=== PATIENT | female | born 1990 | race Caucasian/White ===

== ENCOUNTER 2020-12-10 19:06 | Outpatient (REF) | payer MEDICAID, SELFPAY ==
[2020-12-10 20:58] LABS: HCT 43.1 % (36.0-46.0); HGB 13.9 g/dL (11.2-15.7)
[2020-12-10 21:27] LABS: TSH (W/Ref FT4) 1.11 uIU/mL (0.36-3.74)
[2020-12-13 05:09] LABS: Vitamin D 25 Total 22.8 ng/ml (30-100)
[2020-12-13 15:12] LABS: Chlamydia Result Negative (Negative); GC Result Negative (Negative)
== END 2020-12-10 19:26 ==
LOC: NCHCN 19:06
PROVIDERS: PCP Family Medicine; Visit Provider Nurse Practitioner Family
DX: R10.2 Pelvic and perineal pain (principal); F41.8 Other specified anxiety disorders
CPT/HCPCS: 82306; 87491; 87591; 84443; 85014; 85018

== ENCOUNTER 2023-02-19 14:40 | Outpatient (CLI) | payer MEDICAID, SELFPAY ==
--- NOTE | 2023-02-19 | DI.US_ITS ---
Exam(s) US OB TRANSVAGINAL EXAM: US OB TRANSVAGINAL CLINICAL HISTORY: OF UNKNOWN ANATOMIC LOCATION,[id number],NO SAC 02/16. COMPARISON: No exams were available for comparison TECHNIQUE: Transabdominal Transvaginal first trimester obstetrical ultrasound performed. FINDINGS: Uterus: 8.2 long by 3.5 AP by 4.9 transverse cm. Right ovary: 1.3 x 1.4 x 2.6 cm. No suspicious cystic or solid masses are seen. Left ovary: 2.7 x 2.1 x 2.8 cm. There is a 2.2 x 1.5 x 2.2 cm hypoechoic cyst which likely reflects a corpus luteal cyst. No suspicious adnexal masses or free pelvic fluid is seen. There is a 8.1 mm cyst within the endometrium which may represent a gestational sac. No yolk sac is seen. There is a small nodule soft tissue on the wall which may represent an early gestation. No fe ezio heart rate was obtained at this time. There are few other tiny less than 2 mm cyst seen within o r adjacent to the endometrium. IMPRESSION: 1. 8 mm cyst within the endometrium. No definite pole is seen at this time. A follow-up pelvi c ultrasound in 1-2 weeks is recommended to confirm viability. 2. No adnexal masses or free pelvic fluid is seen. DATA REPOSITORY:
== END 2023-02-19 15:00 ==
LOC: DI 14:41
PROVIDERS: PCP Family Medicine; Visit Provider Advanced Practice Midwife
DX: O36.80X0 Pregnancy with inconclusive fetal viability, not applicable or unspecified (principal)
CPT/HCPCS: 76817

== ENCOUNTER 2023-10-29 23:27 | Emergency (ER) | payer MEDICAID, SELFPAY ==
[2023-10-29 23:28] VITALS: BP 148/99; PULSE 98; RESP 14; O2SAT 98
--- NOTE | 2023-10-29 23:30 | RT.EKG_ITS ---
APPROVED REPORT Exam: Resting ECG Reason for Exam: overdose Patient Location: E HR:85 bpm ECG Measurements Heart Rate 85 AXIS KS 141 P 77 QRSd 105 QRS 80 QT 366 T 29 QTc 433 Conclusion Sinus rhythm...normal P axis, V-rate 60- 99 Paired ventricular premature complexes...sequence of 2 V complexes Physician: normal sinus rhythm, slight artifact and PVCs noted, intervals normal. No ST elevations. No signs of STEMI.
[2023-10-29 23:31] VITALS: BP 148/99; PULSE 94; O2SAT 100
[2023-10-29 23:32] VITALS: O2SAT 100
--- NOTE | 2023-10-29 23:37 | W.ED.GENAD ---
Discharge Plan Discharge Details Chief Complaint: Suicide-Atempt Clinical Impression: Carbon monoxide poisoning, Depression Primary Care Provider: Marco Edmondson ED Provider: Ken Quintana Home Meds and New Rx's Prescriptions: No Action fluoxetine [Prozac] 40 mg capsule 40 mg PO DAILY sumatriptan succinate [Imitrex] 25 MG tablet 25 mg PO BID PRN PRN (Reason: Headache) Qty: 6 0RF Medical Decision Making 32-year-old female with past medical history of depression presents today for car monoxide overdose. Patient states that she is felt somewhat depressed as of late, and then this evening after posting concerning messages online she went into her car and close all the doors and sat in the garage with the car running for 1 to 2 hours. Father came to the house, broken, broke the window and rescue trauma. EMS was called, and she was brought to the ER for further assessment. Patient does admit to drinking 1 beer tonight. She does take Prozac regularly but states that she only took a single pill this morning as directed. This is a 40 mg dose. She denies any other drug use. Denies any other medication use. She denies necessarily wanting to kill herself, she states that she just want to go to sleep and not wake up. She denies any homicidal ideations. No other complaints at this time. She does give permission to discuss her care with her mother and father. Physical exam demonstrates well-appearing female, she is soft-spoken and quite quiet currently. No wong red lips. No neurologic deficits. Initial carbon monoxide level is 7 on bedside carbon monoxide monitor. We will start supplemental oxygen at 10 L on nonrebreather. No indication for intubation. Will get a carboxyhemoglobin level, ABG, test for potential other toxic ingestions, monitor closely and reassess. EKG demonstrates normal sinus rhythm, slight artifact and PVCs noted, intervals normal. No ST elevations. No signs of STEMI. 12:57 AM Laboratory workup has returned, no white count bandemia or left shift. Electrolytes are stable. ABG demonstrates no evidence of acidosis or alkalosis. ABG PaO2 is 193. Carboxyhemoglobin level is 2.1. On reassessment after an hour and a half on high flow oxygen her pulse carbon monoxide level is now reading undetectable. Patient looks well. She does have mild headache but no other neurologic deficits or complaints. Patient's urine drug screen is positive for amphetamines, but no other abnormality. Salicylates and acetaminophen negative. We will give Tylenol here for treatment of headache. We will contact her mental health advocates to further discuss the situation with the patient. Patient is otherwise medically clear at this stage. 1:53 AM Patient has been seen and assessed by mental health. They feel that the patient would benefit from a short overnight stay here, followed by transition to a crisis bed in the morning. Mental health would like to reassess the patient again in the morning. Patient will be transition to zone B, she remains stable at this time. Patient is medically cleared. Patient will be signed out to my colleague. HPI General Date/Time Provider Initiated Documentation: 10/29/23 23:35. HPI Narrative: 32-year-old female with past medical history of depression presents today for car monoxide overdose. Patient states that she is felt somewhat depressed as of late, and then this evening after posting concerning messages online she went into her car and close all the doors and sat in the garage with the car running for 1 to 2 hours. Father came to the house, broken, broke the window and rescue trauma. EMS was called, and she was brought to the ER for further assessment. Patient does admit to drinking 1 beer tonight. She does take Prozac regularly but states that she only took a single pill this morning as directed. This is a 40 mg dose. She denies any other drug use. Denies any other medication use. She denies necessarily wanting to kill herself, she states that she just want to go to sleep and not wake up. She denies any homicidal ideations. No other complaints at this time. She does give permission to discuss her care with her mother and father. Related Data Home Medications Medication Instructions Recorded Confirmed sumatriptan succinate 25 mg tablet 25 mg PO BID PRN PRN Headache #6 04/15/14 10/29/23 (Imitrex) tabs fluoxetine 40 mg capsule (Prozac) 40 mg PO DAILY 12/04/22 10/29/23 Previous Rx's Medication Instructions Recorded sumatriptan succinate 25 mg tablet 25 mg PO BID PRN PRN Headache #6 04/15/14 (Imitrex) tabs Allergies Allergy/AdvReac Type Severity Reaction Status Date / Time No Known Allergies Allergy Unverified 10/29/23 23:33 General Stated Complaint: PsychEval DAVID: 3 Review of Systems All systems reviewed & are unremarkable except as noted in HPI and below PFSH All Active Problems (Updated 10/30/23 @ 01:54 by Ken Quintana DO) Depression (Chronic) Carbon monoxide poisoning (Acute) Social History Smoking/Tobacco Use Status: Never Smoking risk assessment performed?: Yes Drug use: Never Exam Narrative Exam Narrative: 1.Const: Well-nourished, Well-developed, appearing stated age 2.Eyes: PERRL, no conjunctival injection, and symmetrical lids. 3.ENT: Atraumatic external nose and ears. Moist MM. Neck: Symmetric, trachea midline, No thyromegaly. 4.CVS: +S1/S2, No murmurs or gallops. Peripheral pulses 2+ and equal in all extremities. Brisk capillary refill in all extremities. 5.RESP: Unlabored respiratory effort. Clear to auscultation bilaterally. No wheezes rales or rhonchi 6.GI: Soft, Nontender/Nondistended, No hepatosplenomegaly. No guarding or rebound. 7.MSK: Normocephalic/Atraumatic, Extremities w/o deformity or ttp No cyanosis or clubbing, Normal movement of all extremities 8.Skin: Warm, Dry. No rashes or lesions. 9.Neuro: neurology technologist II-XII grossly intact. Sensation grossly intact, no focal neurologic deficits. All 6 cardinal planes of vision are fully intact. No evidence of rotatory or vertical nystagmus. The patient demonstrated a normal rrrpkf-duiv-lkkltl, good dexterity. There was no evidence of dysdiadochokinesia. Patient was able to ambulate without difficulty. There was no wide-based gait. Romberg testing was normal. Bzea-iz-xtoe testing was normal. Sensation was intact bilaterally as well as muscle strength bilaterally for all extremities. Patient was able to verbalize butter cup with no slurring, or miss pronunciation. 10.Psych: (AAO) x3. Appropriate mood and affect Course Vital Signs Vital signs: Vital Signs Pulse 98 H 10/29/23 23:28 Respiratory Rate 14 10/29/23 23:28 Blood Pressure 148/99 H 1218/23 23:28 Pulse Oximetry 98 10/29/23 23:28 Pulse 98 H 10/29/23 23:28 Respiratory Rate 14 10/29/23 23:28 Respiratory Effort Normal 10/29/23 23:32 Blood Pressure 148/99 H 10/29/23 23:28 Blood Pressure Position Sitting 10/29/23 23:28 Pulse Oximetry 98 10/29/23 23:28 Oxygen Delivery Method Room Air 10/29/23 23:28 Oxygen Flow Rate 0 10/29/23 23:28
[2023-10-29 23:40] VITALS: O2SAT 100
[2023-10-29 23:50] VITALS: PULSE 97; RESP 24; O2SAT 100
[2023-10-29 23:50] LABS: Abs Immature Grans 0.02 10^3/uL (0.0-0.06); Absolute Basophil Count 0.06 10^3/uL (0.0-0.2); Absolute Eosinophil Count 0.15 10^3/uL (0.0-0.7); Absolute Lymphocyte Count 1.59 10^3/uL (1.2-3.4); Absolute Monocyte Count 0.31 10^3/uL (0.1-0.8); Eosinophils % 2.5; HCT 40.2 % (36.0-46.0); HGB 13.9 g/dL (11.2-15.7); Immature Grans % 0.3; Lymphocytes % 26.4; MCH 32.1 pg (27.0-33.0); MCHC 34.6 % (32.0-36.0); MCV 93 fL (80-95); MPV 8.3 fL (8.0-11.0); Monocytes % 5.1; Neutrophils % 64.7; Platelet Count 312 10^3/uL (130-400); RBC 4.33 10^6/uL (3.93-5.22); RDW 11.6 % (11.7-14.6); RDW-SD 39.4 fL; WBC 6.03 10^3/uL (4.4-10.8)
[2023-10-29 23:51] LABS: Carboxyhemoglobin 2.1 %
[2023-10-30] VITALS (22 sets, daily range): BP systolic 118–138; BP diastolic 77–97; PULSE 70–89; RESP 13–23; TEMP 36.9; O2SAT 99–100
[2023-10-30 00:06] LABS: BE 0 mmol/L (-2-3); HCO3 24 mmol/L (22-26); pCO2 35 mmHg (35-45); pH 7.45 (7.35-7.45); pO2 193 mmHg (80-105); sO2 99 % (95-98); tCO2 21 mmol/L (23-27)
[2023-10-30 00:08] LABS: ALT 21 U/L (14-59); AST 15 U/L (15-37); Albumin 3.7 g/dL (3.4-5.0); Alkaline Phosphatase 64 U/L (46-116); Anion Gap 11.1 mmol/L (3-11); BUN 12 mg/dL (7-18); Bilirubin, Total 0.2 mg/dL (0.2-1.0); CO2 25.9 mmol/L (21.0-32.0); CREATININE 0.7 mg/dL (0.55-1.02); Chloride 103 mmol/L (98-107); Estimated GFR 119.24 (mL/min/1.73m2); Glucose 101 mg/dL (74-106); Potassium 3.6 mmol/L (3.5-5.1); Sodium 140 mmol/L (136-145); Total Protein 7.6 g/dL (6.4-8.2)
[2023-10-30 00:09] LABS: FIO2L 10 L; Site Right Radial
[2023-10-30 00:10] LABS: ETHANOL BLOOD < 3.0 mg/dL (<10)
[2023-10-30] MEDS: Lactated Ringers 1,000 ML 1000 ML IV (00:11)
[2023-10-30 00:19] LABS: Salicylate < 2.8 mg/dL (<2.8)
[2023-10-30 00:21] LABS: Acetaminophen < 2 ug/mL (10-30)
[2023-10-30 00:39] LABS: *AMPHETAMINES SCREEN URINE Positive (Negative); *BARBITURATES SCREEN URINE Negative (Negative); *BENZODIAZEPINES SCREEN URINE Negative (Negative); Cannabinoids THC Negative (Negative); Cocaine Screen,Urine Negative (Negative); METHADONE URINE SCREEN Negative (Negative); OPIATES URINE SCREEN Negative (Negative)
[2023-10-30 00:40] LABS: Tricyclic Antidepressants Negative (Negative)
[2023-10-30 00:49] LABS: Bilirubin Negative (Negative); Blood Trace-intact (Negative); Clarity Clear (Clear); Glucose Negative (Negative); Ketones Negative (Negative); Leukocyte Esterase Negative (Negative); Nitrite Negative (Negative); Urobilinogen 0.2 mg/dL (Up to 0.2)
[2023-10-30 01:01] LABS: Bacteria Few HPF (Negative); C & S Indicated? No; Crystals Negative HPF (Negative); Epithelial Cells Many HPF (Negative); Mucus Trace (Negative); RBC 0-2 HPF (0-2); WBC Negative HPF (0-5)
[2023-10-30] MEDS: Acetaminophen 500 MG TAB 1000 MG PO (01:02)
--- NOTE | 2023-10-30 01:46 | PDOC.MHCN_ITS ---
Date of service: 10/30/23 Time of Service: 01:45 PHQ-9 Over the last 2 weeks, how often have you been bothered by any of the following problems? 1. Little interest or pleasure in doing things: more than half the days 2. Feeling down, depressed, or hopeless: more than half the days 3. Trouble falling or staying asleep, or sleeping too much: several days 4. Feeling tired or having little energy: several days 5. Poor appetite or overeating: several days 6. Feeling bad about yourself - or that you are a failure or have let yourself and your family down: more than half the days 7. Trouble concentrating on things, such as reading the newspaper or watching television: not at all 8. Moving or speaking so slowly that other people could have noticed? - Or the opposite - being so fidgety or restless that you have been moving around a lot more than usual: several days 9. Thoughts that you would be better off or of hurting yourself in some way: several days Total score: 11 If you checked off any problems, how difficult have these problems made it for you to do your work, take care of things at home, or get along with other people?: somewhat difficult Source: Developed by Drs. Jamshid Toth, Jenelle Thompson, Antonio Yip and colleagues, with an educational jorge from [employer]. Suicide Severity Rate CSSRS Have you wished you were or wished you could go to sleep and not wake up?: No Have you actually had any thoughts of killing yourself?: Yes CSSRS2 Have you been thinking about how you might do this?: Yes Have you had these thoughts and had some intention of acting on them?: Yes Have you started to work out or worked out the details of how to kill yourself? Do you intend to carry out this plan?: Yes CSSRS3 Have you ever done anything, started to do anything or prepared to do anything to end your life?: Yes CSSRS4 Was this within the past three months?: Yes Screening Score Total Score: 6 Screening: Positive Mental Health Emergency Note Release [facility] release signed:: Yes Reason for Visit Kirit was brought to [facility] via ambulance after [facility] connected with [facility] regarding Kirit's active SI. In the last 2 weeks has the pt presented for ES prior to today?: Unknown Client Information Client is: New Well Housed: Yes Non Suicidal Self Injury Current: No History: No Safety Risk/Harm to Self or Others Current Ideation to Harm Self or Others: Yes to self. (Kirit is not currently endorsing but earlier tonight, Kirit sat in her garage with the car on and the door closed but her father found her. ) Intent: yes, has intent. Plan: yes,has a plan. History of suicide attempt: yes,history of suicide attempt reported. Details of previous suicide attempt: Today's situation. Risk: Does risk to harm exist?: No Risk: Low Risk Duty to warn indicated: No Asssessment/Mental Status Appearance: Unremarkable Attitude: Cooperative Behavior: Poor impulse control Speech: Soft Affect: Cogruent with mood Mood: Sad, Depressed and Anxious Thought process: Unremarkable Hallucinations: No evidence Delusions: No evidence Attention: Unremarkable Perception: Not impaired Orientation: Fully orientated Memory: Intact Insight: Good Judgement: Good Neurovegetative Symptoms Sleep: No change Appetitie: No change Interests: No change Energy: No change Libido: Not applicable Substance Use: Do you use nicotine?: No Have you used substances in the last 7 days?: No Additional Issues: Assaultive/Threatening Behavior: No Medical Concerns: No Client engaged in active self harm w/weapon: No Threatening to run away: No Child reported abuse/neglect: No Voluntarily presenting for services: Yes Domestic violence is a concern: No Extreme Psychosis or extreme behavior is present: No Impression Kirit presented to [facility] via ambulance after her family called [facility] in concern for her safety. Upon her father's arrival to her home he found her in the garage with the door closed and her car running. Kirit reports she felt extremely overwhelmed with everything happening in her life. Kirit is currently going through a separation from her children's father, she is stressed about finances, [place], attempting to take care of herself while being a mom and working. 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 Kirit reports she has been trying to get help for awhile now because things had been declining but she felt getting help was very hard. Kirit reports emailing several therpaists on psychology today as she feels her current therapist is not the best fit; although she wants to continue to see this therapist until a new therapist is concerned so she does not skip having therapy. Kirit also sees a community med provider. Kirit reports her medication was switched in July which caused her to get sick and go off meds for about two months. Kirit reports Thanksmarielleving charan time was very hard for her and she began taking Prozac again to help. Kirit reports she was really sad around the time of Thanksgiving because she felt nothing was going right. Kirit compared this moment to her feelings around Thanksgiving. Kirit is supposed to have a med appointment . Kirit reports she knows and has known she needs more help. Kirit reports she is tired of feeling this way and wants help to not feel this way anymore. Kirit scored a 11/27 on the phq9, a 5/6 on the CSSRS due to today's incident but Kirit reported she felt triggered and acted on impulse so without today it would have been a 3/6. Kirit reports that she got home from work and lost power shortly after which overwhlemed her as she has so many things to do. After losing power Kirit went to see if a friend was home and they were not so she went to the [employer]. Kirit reports having one alcoholic beverage, and on her way home a sad song came on which is when her mind started to race. This was also day 1 of the weke Kirit's two children are with their father. Kirit reports she wrote an I love you note to her children today apologizing to them. Kirit reports she lives alone when her kids are not there but she has a friend near by and her parents live about thirty minutes away. Kirit named several friends and family as support in addition to her therapist and med provider. Kirit reports her 'need' is a plan, she wants help, wants to know how to manage her thoughts, and wants to feel better. This blurb writer discussed Kirit's options of crisis bed, inpatient, and outpatient. Kirit and this blurb writer agreed Kirit would be a good fit for the [facility]. Kirit wants to seek treatment there after the holidays and is more than willing to buy into a safety plan until then. Resources Reosurces reviewed and given:: 988, Crisis Bed, Community therapist and [facility] Plan/Disposition Recommended Disposition: Other (Plan will be thoughtfully developed tomorrow to ensure client has by in.). Plan: Kirit will remain at [facility] overnight and be seen in the morning by [facility]. [facility] and Kirit will develop a plan that will get her to seek services and have buy in, into her treatment. Kirit reports she knows she needs the help and she wants the help. Person reported agreement to plan: Yes Reports/communication Outcome discussed with: ED/Personnel
--- NOTE | 2023-10-30 07:20 | W.EDPROG ---
Date of service: 10/30/23 Time of Service: 07:20 Medical Decision Making This patient was signed out to me. Please see previous notes for H&P and initial eval. In brief, 32yo F presenting after suicide attempt via carbon monoxide. Found by her father in the garage with the car running after he saw concerning social media posts. Initial CO 7 on bedside monitor; started on NRB. Lab draw with CO of 2.1. After 90 minutes on NRB, pulse CO was undetectable and O2 was dced. Assessed by mental health, plan for reassessment in the morning and likely crisis bed placement. Medically cleared. Reassessed by [facility] and safety plan made, thought to be appropriate for discharge. Plan for crisis bed after the holidays as patient wants to spend Sean with her children. I discussed with Ms. Sierra the plan and she feels safe to go home, denies any plan or intent to harm herself at this time, regrets her actions yesterday. Her children will be with their father on [place] and Sean , then will come to her house and they will do [place] Radha on the and then celebrate sean on the . She is not sure what she will do on the ; may spend the day/night with her boyfriend or possibly with her mother. She does plan to be around people on this date and I stressed the importance of this with her as it may be an emotionally difficult time. She would like to go home and I have no indication to hold her against her will. Discharged; discharge instructions and return precautions were reviewed with patient who verbalized understanding. She states she will return to the ED if her thoughts of self harm return. All questions were answered and she is in full agreement with the plan. Sign Out Sign Out Data: Sign Out Comment: Depressed, attempted self-harm via staying in her car and achieving carbon monoxide overdose. CO level slightly elevated upon arrival. After 2 hours of high flow oxygen CO level diminished to undetectable. Patient otherwise medically cleared. Pending reassessment by mental health in the morning with potential for safety planning and crisis bed discharge Last updated by Ken Quintana DO at 10/30/23 06:33 Discharge Plan Disposition Patient Disposition: Home Condition: Good Discharge Details Clinical Impression: Carbon monoxide poisoning, Depression Primary Care Provider: Gina Crawford ED Provider: Nicci Garcia Home Meds and New Rx's Prescriptions: No Action fluoxetine [Prozac] 40 mg capsule 40 mg PO DAILY sumatriptan succinate [Imitrex] 25 MG tablet 25 mg PO BID PRN PRN (Reason: Headache) Qty: 6 0RF Discharge Instructions Instructions: Suicide Prevention (ED) Additional Instructions: Follow your safety plan. Make your check in phone calls. Call your primary care doctor today to schedule an appointment to follow up on your visit here. Return to the emergency department for new or worsening symptoms, including worsening thoughts of self harm, feeling unsafe at home, or if you have any other concerns.
--- OUTSIDE RECORDS SUMMARY | 2023-10-30 07:58 | XMS_ITS | Continuity of Care Document ---
Author Name Unknown Organization [facility] Address [address] [place] [address] Encounter [facility] FIN NBR [id number] Date(s): 06/19/23 - 06/19/23 [facility] [address] [place] [address]- Discharge Disposition: Home Allergies, Adverse Reactions, Alerts No Known Allergies Assessment and Plan Future Scheduled Tests Laboratory* Beta hCG Quantitative 02/16/23 Immunizations Given and Recorded Vaccine Date Status Refusal Reason tetanus/diphth/pertuss (Tdap) adult/adol 1 07/21/16 Recorded 1Result Comment: Unit: Unknown Medications FLUoxetine 40 mg oral capsule 40 mg = 1 cap, Oral, Daily, # 90 cap, 4 Refill(s), Pharmacy: [id number], 157, cm, 01/19/23 8:47:00 EST, Height/Length Dosing, 54, kg, 01/19/23 8:47:00 EST, Weight Dosing Start Date: 02/12/23 Stop Date: 05/07/24 Status: Ordered NuvaRing 0.120 mg-0.015 mg/24 hours vaginal ring See Instructions, INSERT 1 RING VAGINALLY DIRECTED. LEAVE IN FOR 24 DAYS THEN INSERT NEW RING 4 DAYS LATER, # 3 ring, 4 Refill(s), Pharmacy: [id number], 157, cm, 01/19/23 8:47:00 EST, Height/Length Dosing, 54, kg, 01/19/23 8:47:00 EST, Weight Dosing Start Date: 06/20/23 Status: Ordered Problem List Condition Confirmation Course Effective Dates Status Health St [facility] Informant Anxiety Confirmed Active Depression Confirmed Active Procedures Procedure Date Related Diagnosis Body Site Status Surgical termination of 02/20/23 Completed Extraction of wisdom tooth Completed Social History Social History Type Response Tobacco Never tobacco user T obacco Use:. Sex Patient Care team information Care Team Related Persons Name: KIMAUBREY Address: Home
--- OUTSIDE RECORDS SUMMARY | 2023-10-30 07:58 | XMS_ITS | Continuity of Care Document ---
Author Name Unknown Organization [facility] Address [address] [place] [address] Encounter [facility] FIN NBR [id number] Date(s): 07/17/23 - 07/17/23 [facility] [address] [place] [address]- Discharge Disposition: Home Allergies, Adverse Reactions, Alerts No Known Allergies Assessment and Plan Future Scheduled Tests Laboratory* Beta hCG Quantitative 02/16/23 Immunizations Given and Recorded Vaccine Date Status Refusal Reason tetanus/diphth/pertuss (Tdap) adult/adol 1 07/21/16 Recorded 1Result Comment: Unit: Unknown Medications FLUoxetine 40 mg oral capsule 40 mg = 1 cap, Oral, Daily, # 90 cap, 4 Refill(s), Pharmacy: [id number], 157, cm, 01/19/23 8:47:00 EST, Height/Length Dosing, 54, kg, 01/19/23 8:47:00 EST, Weight Dosing Start Date: 02/12/23 Stop Date: 05/07/24 Status: Ordered Macrobid 100 mg oral capsule 1 cap, Oral, BID, X 7 days, # 14 cap, 0 Refill(s), 07/23/23 1:25:00 PM CDT, Pharmacy: [id number], 157, 01/19/23 8:47:00 EST, 54, kg, 01/19/23 8:47:00 EST Start Date: 07/16/23 Stop Date: 07/23/23 Status: Ordered NuvaRing 0.120 mg-0.015 mg/24 hours vaginal ring See Instructions, INSERT 1 RING VAGINALLY DIRECTED. LEAVE IN FOR 24 DAYS THEN INSERT NEW RING 4 DAYS LATER, # 3 ring, 4 Refill(s), Pharmacy: [id number], 157, cm, 01/19/23 8:47:00 EST, Height/Length [...] team information Care Team Related Persons Name: AUBREY ALVAREZ Address: Home
--- OUTSIDE RECORDS SUMMARY | 2023-10-30 07:58 | XMS_ITS | Continuity of Care Document ---
Author Name Unknown Organization [facility] Ambulatory Clinics Address [address] [place] [address] Encounter [facility] NBR [id number] Date(s): 07/23/23 - 07/23/23 [facility] Ambulatory Clinics [address] [place], [place] [address] Encounter Diagnosis Routine screening for STI (sexually transmitted infection)(Discharge Diagnosis) - 07/23/23 Irregular menses(Discharge Diagnosis) - 07/23/23 Dysuria(Discharge Diagnosis) - 07/23/23 Discharge Disposition: Home or Self Care Attending Physician: Sally Kelly Allergies, Adverse Reactions, Alerts No Known Allergies Assessment and Plan Future Scheduled Tests Laboratory* Beta hCG Quantitative 02/16/23 Immunizations Given and Recorded Vaccine Date Status Refusal Reason tetanus/diphth/pertuss (Tdap) adult/adol 1 07/21/16 Recorded 1Result Comment: Unit: Unknown Medications FLUoxetine 40 mg oral capsule 40 mg = 1 cap, Oral, Daily, # 90 cap, 4 Refill(s), Pharmacy: [facility] ([facility], 157, cm, 01/19/23 8:47:00 EST, Height/Length Dosing, 54, kg, 01/19/23 8:47:00 EST, Weight Dosing Start Date: 02/12/23 Stop Date: 05/07/24 Status: Ordered NuvaRing 0.120 mg-0.015 mg/24 hours vaginal ring See Instructions, INSERT 1 RING VAGINALLY DIRECTED. LEAVE IN FOR 24 DAYS THEN INSERT NEW RING 4 DAYS LATER, # 3 ring, 4 Refill(s), Pharmacy: [facility] ([facility], 157, cm, 01/19/23 8:47:00 EST, Height/Length Dosing, 54, kg, 01/19/23 8:47:00 EST, Weight Dosing Start Date: 06/20/23 Status: Ordered Viibryd 20 mg oral tablet 20 mg = 1 tab, Oral, Daily, 0 Refill(s) Start Date: 07/23/23 Status: Ordered Problem List Condition Confirmation Course Effective Dates Status Health St atus Informant Anxiety Confirmed Active Depression Confirmed Active Procedures Procedure Date Related Diagnosis Body Site Status Surgical termination of 02/20/23 Completed Extraction of wisdom tooth Completed Vital Signs Most recent to oldest [Reference Range]: 1 Blood Pressure [90-140/60-90 mmHg] 108/7 2mmHg (07/23/23 11:07 AM) Weight 52.9 kg (07/23/23 11:07 AM) Weight Measured (lbs) 116.624 lb (07/23/23 11:07 AM) [place] Body Weight Calculated 47.8 kg (07/23/23 11:07 AM) Height 154.94 cm (07/23/23 11:07 AM) Height/Length Measured (inches) 61 inch (07/23/23 11:07 AM) BSA Measured 1.51 m2 (07/23/23 11:07 AM) Body Mass Index 22.04 kg/m2 (07/23/23 11:07 AM) Social History Social History Type Response Tobacco Never tobacco user T obacco Use:. Sex Patient Care team information Care Team Related Persons Name: AUBREY ALVAREZ Address: Home
--- OUTSIDE RECORDS SUMMARY | 2023-10-30 07:58 | XMS_ITS | Continuity of Care Document ---
Author Name Unknown Organization [facility] Address [address] [place] [id number] Encounter [facility] NBR [id number] Date(s): 01/19/23 - 01/19/[address] [address]- [place] Encounter Diagnosis Hypodermic needlestick injury of finger(Discharge Diagnosis) - 01/19/23 Contact with hypodermic needle, initial encounter(Discharge Diagnosis) - 01/19/23 Discharge Disposition: Home or Self Care Attending Physician: David Overton DO Admitting Physician: David Overton DO Allergies, Adverse Reactions, Alerts No Known Allergies Assessment and Plan Diagnostic Tests Pending * HIV Ag/Ab Combo 1/2 01/19/23 * Hepatitis B Surface Antigen 01/19/23 * Hepatitis A Antibody IgM 01/19/23 * Hepatitis B Core Antibody IgM 01/19/23 * Hepatitis C Antibody 01/19/23 Functional Status 01/19/23 Other exposure to Infectious Disease Non e Medications FLUoxetine 40 mg oral capsule 40 mg = 1 cap, Oral, Daily, # 30 cap, 0 Refill(s) Start Date: 01/19/23 Status: Ordered NuvaRing 0.120 mg-0.015 mg/24 hours vaginal ring 1 EA, VAG, every 4 wk, # 1 EA, 0 Refill(s) Start Date: 01/19/23 Status: Ordered Results Laboratory List Name Date Comprehensive Metabolic Panel (CMP) 01/19 Most recent to oldest [Reference Range]: 1 BUN [8-26 mg/dL] 13 mg/dL (01/19/23 9:58 AM) Glucose Level [74-106 mg/dL] 87 mg/dL (01/19/23 9:58 AM) Potassium Level [3.5-5.1 mmol/L] 3.7 mmo l/L (01/19/23 9:58 AM) AST [15-41 IntlUnit/L] 22 IntlUnit/L (01/19/23 9:58 AM) ALT [14-54 IntlUnit/L] 25 IntlUnit/L (01/19/23 9:58 AM) Osmolality [275-295 mOsm/kg] 271 mOsm/kg *LOW* (01/19/23 9:58 AM) Sodium Level [134-143 mmol/L] 136 mmol/L (01/19/23 9:58 AM) Calcium Level [8.9-10.3 mg/dL] 9.1 mg/dL (01/19/23 9:58 AM) Albumin Level [3.5-5.0 g/dL] 4.3 g/dL (01/19/23 9:58 AM) Protein Total [6.5-8.1 g/dL] 7.4 g/dL (01/19/23 9:58 AM) Bilirubin Total [0.2-1.2 mg/dL] 0.7 mg/d L (01/19/23 9:58 AM) Alk Phos [38-130 IntlUnit/L] 63 IntlUnit /L (01/19/23 9:58 AM) CO2 [22-32 mmol/L] 26 mmol/L (01/19/23 9:58 AM) Chloride Level [98-111 mmol/L] 101 mmol/ L (01/19/23 9:58 AM) A/G Ratio 1.4 *NA* (01/19/23 9:58 AM) BUN/Creat Ratio [8.0-20.0] 20.3 *HI* (01/19/23 9:58 AM) Globulin 3.1 *NA* (01/19/23 9:58 AM) Creatinine Level [0.44-1.00 mg/dL] 0.64 mg/dL (01/19/23 9:58 AM) Anion Gap [3.0-12.0] 9.0 (01/19/23 9:58 AM) eGFR CKD-EPI [>=60 mL/min/1.73 m2] 122 m L/min/1.73 m2 (01/19/23 9:58 AM) Vital Signs Most recent to oldest [Reference Range]: 1 Temperature Temporal Artery [36-38 Deg C ] 35.7 Deg C *LOW* (01/19/23 8:39 AM) Peripheral Pulse Rate [60-100 bpm] 74 bp m (01/19/23 8:39 AM) Respiratory Rate [12-24 br/min] 20 br/mi n (01/19/23 8:39 AM) Blood Pressure [90-140/60-90 mmHg] 126/7 6mmHg (01/19/23 8:39 AM) Weight 54.00 kg (01/19/23 8:39 AM) Weight Dosing 54.00 kg (01/19/23 8:47 AM) Height 157.000 cm (01/19/23 8:39 AM) Height/Length Dosing 157.000 cm (01/19/23 8:47 AM) Body Mass Index 22.000 kg/m2 (01/19/23 8:39 AM) Social History Social History Type Response Tobacco Never tobacco user T obacco Use:. Sex Hospital Discharge Instructions Patient Education 01/19/2023 08:36:25 Wound Care, Adult Wound Care, Adult Taking care of your wound properly can help to prevent pain, infection, and scarring. It can also help your wound heal more quickly. Follow instructions from your health care provider about how to care for your wound. Supplies needed: ??? Soap and water. ??? Wound cleanser. ??? Gauze. ??? If needed, a clean bandage (dressing) or other type of wound dressing material to cover or place in the wound. Follow your health care provider's instructions about what dressing supplies to use. ??? Cream or ointment to apply to the wound, if told by your health care provider. How to care for your wound Cleaning the wound Ask your health care provider how to clean the wound. This may include: ??? Using mild soap and water or a wound cleanser. ??? Using a clean gauze to pat the wound dry after cleaning it. Do not rub or scrub the wound. Dressing care ??? Wash your hands with soap and water for at least 20 seconds before and after you change the dressing. If soap and water are not available, use hand car painter. ??? Change your dressing as told by your health care provider. This may include: ??? Cleaning or rinsing out (irrigating) the wound. ??? Placing a dressing over the wound or in the wound (packing). ??? Covering the wound with an outer dressing. ??? Leave any stitches (sutures), skin glue, or adhesive strips in place. These skin closures may need to stay in place for 2 weeks or longer. If adhesive strip edges start to loosen and curl up, youmay trim the loose edges. Do not remove adhesive strips completely unless your health care providertells you to do that. ??? Ask your health care provider when you can leave the wound uncovered. Checking for infection Check your wound area every day for signs of infection. Check for: ??? More redness, swelling, or pain. ??? Fluid or blood. ??? Warmth. ??? Pus or a bad smell. Follow these instructions at home Medicines ??? If you were prescribed an antibiotic medicine, cream, or ointment, take or apply it as told by your health care provider. Do not stop using the antibiotic even if your condition improves. ??? If you were prescribed pain medicine, take it 30 minutes before you do any wound care or as told by your health care provider. ??? Take aojg-eae-ezyayvw and prescription medicines only as told by your health care provider. Eating and drinking ??? Eat a diet that includes protein, vitamin A, vitamin C, and other nutrient- rich foods to help the wound heal. ??? Foods rich in protein include meat, fish, eggs, dairy, beans, and nuts. ??? Foods rich in vitamin A include carrots and dark green, leafy vegetables. ??? Foods rich in vitamin C include citrus fruits, tomatoes, broccoli, and peppers. ??? Drink enough fluid to keep your urine pale yellow. General instructions ??? Do not take baths, swim, use a hot tub, or do anything that would put the wound underwater until your health care provider approves. Ask your health care provider if you may take showers. You mayonly be allowed to take sponge baths. ??? Do not scratch or pick at the wound. Keep it covered as told by your health care provider. ??? Return to your normal activities as told by your health care provider. Ask your health care provider what activities are safe for you. ??? Protect your wound from the sun when you are outside for the first 6 months, or for as long as told by your health care provider. Cover up the scar area or apply sunscreen that has an SPF of at least 30. ??? Do not use any products that contain nicotine or tobacco, such as cigarettes, e-cigarettes, andchewing tobacco. These may delay wound healing. If you need help quitting, ask your health care provider. ??? Keep all follow-up visits as told by your health care provider. This is important. Contact a health care provider if: ??? You received a tetanus shot and you have swelling, severe pain, redness, or bleeding at the injection site. ??? Your pain is not controlled with medicine. ??? You have any of these signs of infection: ??? More redness, swelling, or pain around the wound. ??? Fluid or blood coming from the wound. ??? Warmth coming from the wound. ??? Pus or a bad smell coming from the wound. ??? A fever or chills. ??? You are nauseous or you vomit. ??? You are dizzy. Get help right away if: ??? You have a red streak of skin near the area around your wound. ??? Your wound has been closed with aislinn, sutures, skin glue, or adhesive strips and it begins to open up and separate. ??? Your wound is bleeding, and the bleeding does not stop with gentle pressure. ??? You have a rash. ??? You faint. ??? You have trouble breathing. These symptoms may represent a serious problem that is an emergency. Do not wait to see if the symptoms will go away. Get medical help right away. Call your local emergency services (911 in the [place] Do not drive yourself to the hospital. Summary ??? Always wash your hands with soap and water for at least 20 seconds before and after changing your dressing. ??? Change your dressing as told by your health care provider. ??? To help with healing, eat foods that are rich in protein, vitamin A, vitamin C, and other nutrients. ??? Check your wound every day for signs of infection. Contact your health care provider if you suspect that your wound is infected. This information is not intended to replace advice given to you by your health care provider. Make sure you discuss any questions you have with your health care provider. Document Revised: 08/13/2020 Document Reviewed: 08/13/2020 [employer] Patient Education ?? 2021 [employer]. Emergency department Discharge instructions * Franklin Lofton MD: PERFORM Event Display: ED Discharge Information Authored Date: [id number] BREEZY ALVAREZ Briana :1990 Age:32 years Sex:Female Visit Date:01/19/2023 Discharge Instructions We would like to thank you for allowing us to assist you with your healthcare needs. The following includes patient education materials and information regarding your injury/illness. Diagnosis from Today's Visit Hypodermic needlestick injury of finger Contact with hypodermic needle, initial encounter Discharge Vitals Temperature??(Temporal Artery) 96.3 ??F (35.7 ??C) Heart Rate??(Peripheral) 74 Respiratory Rate?? 20 Blood Pressure?? 126/76?? Height?? 61.81 in (157.000 cm) Weight?? 119.07 lb (54.00 kg) BMI?? 22.000 Allergies No Known Allergies What to Do Next Instructions from Your Care Team Follow-up with regular doctor. ??Return for??worsening symptoms You were treated today on an emergency basis; it may be dillard to contact your primary care provider to notify them of your visit today. You may have been referred to your regular doctor or a specialist, please follow up as instructed. If your condition worsens or you can't get in to see the doctor, contact the Emergency Department. Medications What How Much When Instructions Next Dose Unchanged etonogestrel-ethinyl estradiol (NuvaRing 0.120 mg-0.015 mg/ 24 hours vaginal ring) 1 Each Vaginal (in the vagina) Every 4 weeks Unchanged FLUoxetine (FLUoxetine 40 mg oral capsule) 1 Capsules Oral (given by mouth) Every day Education Materials Wound Care, Adult Taking care of your wound properly can help to prevent pain, infection, and scarring. It can also help your wound heal more quickly. Follow instructions from your health care provider about how to care for your wound. Supplies needed: ? Soap and water. ? Wound cleanser. ? Gauze. ? If needed, a clean bandage (dressing) or other type of wound dressing material to cover or place inthe wound. Follow your health care provider's instructions about what dressing supplies to use. ? Cream or ointment to apply to the wound, if told by your health care provider. How to care for your wound Cleaning the wound Ask your health care provider how to clean the wound. This may include: ? Using mild soap and water or a wound cleanser. ? Using a clean gauze to pat the wound dry after cleaning it. Do not rub or scrub the wound. Dressing care ? Wash your hands with soap and water for at least 20 seconds before and after you change the dressing. If soap and water are not available, use hand car painter. ? Change your dressing as told by your health care provider. This may include: ? Cleaning or rinsing out (irrigating) the wound. ? Placing a dressing over the wound or in the wound (packing). ? Covering the wound with an outer dressing. ? Leave any stitches (sutures), skin glue, or adhesive strips in place. These skin closures may need to stay in place for 2 weeks or longer. If adhesive strip edges start to loosen and curl up, you maytrim the loose edges. Do not remove adhesive strips completely unless your health care provider tells you to do that. ? Ask your health care provider when you can leave the wound uncovered. Checking for infection Check your wound area every day for signs of infection. Check for: ? More redness, swelling, or pain. ? Fluid or blood. ? Warmth. ? Pus or a bad smell. Follow these instructions at home Medicines ? If you were prescribed an antibiotic medicine, cream, or ointment, take or apply it as told by yourhealth care provider. Do not stop using the antibiotic even if your condition improves. ? If you were prescribed pain medicine, take it 30 minutes before you do any wound care or as told byyour health care provider. ? Take tldx-yem-hrsjqxz and prescription medicines only as told by your health care provider. Eating and drinking ? Eat a diet that includes protein, vitamin A, vitamin C, and other nutrient-rich foods to help the wound heal. ? Foods rich in protein include meat, fish, eggs, dairy, beans, and nuts. ? Foods rich in vitamin A include carrots and dark green, leafy vegetables. ? Foods rich in vitamin C include citrus fruits, tomatoes, broccoli, and peppers. ? Drink enough fluid to keep your urine pale yellow. General instructions ? Do not take baths, swim, use a hot tub, or do anything that would put the wound underwater until your health care provider approves. Ask your health care provider if you may take showers. You may only be allowed to take sponge baths. ? Do not scratch or pick at the wound. Keep it covered as told by your health care provider. ? Return to your normal activities as told by your health care provider. Ask your health care provider what activities are safe for you. ? Protect your wound from the sun when you are outside for the first 6 months, or for as long as toldby your health care provider. Cover up the scar area or apply sunscreen that has an SPF of at least30. ? Do not use any products that contain nicotine or tobacco, such as cigarettes, e- cigarettes, and chewing tobacco. These may delay wound healing. If you need help quitting, ask your health care provider. ? Keep all follow-up visits as told by your health care provider. This is important. Contact a health care provider if: ? You received a tetanus shot and you have swelling, severe pain, redness, or bleeding at the injection site. ? Your pain is not controlled with medicine. ? You have any of these signs of infection: ? More redness, swelling, or pain around the wound. ? Fluid or blood coming from the wound. ? Warmth coming from the wound. ? Pus or a bad smell coming from the wound. ? A fever or chills. ? You are nauseous or you vomit. ? You are dizzy. Get help right away if: ? You have a red streak of skin near the area around your wound. ? Your wound has been closed with aislinn, sutures, skin glue, or adhesive strips and it begins to open up and separate. ? Your wound is bleeding, and the bleeding does not stop with gentle pressure. ? You have a rash. ? You faint. ? You have trouble breathing. These symptoms may represent a serious problem that is an emergency. Do not wait to see if the symptoms will go away. Get medical help right away. Call your local emergency services (911 in the [place] Do not drive yourself to the hospital. Summary ? Always wash your hands with soap and water for at least 20 seconds before and after changing your dressing. ? Change your dressing as told by your health care provider. ? To help with healing, eat foods that are rich in protein, vitamin A, vitamin C, and other nutrients. ? Check your wound every day for signs of infection. Contact your health care provider if you suspectthat your wound is infected. This information is not intended to replace advice given to you by your health care provider. Make sure you discuss any questions you have with your health care provider. Document Revised: 08/13/2020 Document Reviewed: 08/13/2020 [employer] Patient Education ?? 2021 [employer] Patient/Personal Trainer Signature Patient Name:BREEZY ALVAREZ I have received this information and my questions have been answered. Patient/Personal Trainer Name: Patient/Personal Trainer Signature: Relationship to Patient: Witness Name/Signature: Date: Electronically Signed on: 01/19/2023 09:37 ESTSigned by:CARMELITA Patient Care team information Care Team Personnel Name: Franklin Lofton MD Position: Physician Member Role: ED Physician Address: Address: [address] [place] [phone] [place] Name: Rachelle Mosqueda Position: Nurse Member Role: ED Nurse Name: Teri Rincon Position: Nurse Member Role: ED Nurse Care Team Related Persons Name: AUBREY ALVAREZ
--- OUTSIDE RECORDS SUMMARY | 2023-10-30 07:58 | XMS_ITS | Continuity of Care Document ---
Author Name Unknown Organization [facility] Address [address] [place] [id number] Encounter [facility] FIN NBR [id number] Date(s): 02/16/23 - 02/16/23 [facility] [address] [place] [address]- [place] Discharge Disposition: Home or Self Care Attending Physician: Gamaliel Anderson MD, FACOG Admitting Physician: Gamaliel Anderson MD, FACOG Referring Physician: Gamaliel Anderson MD, FACOG Allergies, Adverse Reactions, Alerts No Known Allergies Assessment and Plan Future Scheduled Tests Laboratory* Beta hCG Quantitative 02/16/23 Medications FLUoxetine 40 mg oral capsule 40 mg = 1 cap, Oral, Daily, # 90 cap, 4 Refill(s), Pharmacy: [facility] #[id number], 157, cm, 01/19/23 8:47:00 EST, Height/Length Dosing, 54, kg, 01/19/23 8:47:00 EST, Weight Dosing Start Date: 02/12/23 Stop Date: 05/07/24 Status: Ordered NuvaRing 0.120 mg-0.015 mg/24 hours vaginal ring 1 EA, VAG, every 4 wk, # 1 EA, 0 Refill(s) Start Date: 01/19/23 Status: Ordered Results Laboratory List Name Date Beta hCG Quantitative 02/16/23 Most recent to oldest [Reference Range]: 1 Beta hCG Qnt [<=5.0 mIntlUnit/mL] 1997.0 mIntlUnit/mL 1 *HI* (02/16/23 3:43 PM) 1Result Comment: results obtained by dilution Social History Social History Type Response Tobacco Never tobacco user T obacco Use:. Sex Patient Care team information Care Team Related Persons Name: ALVAREZAUBREY Address: Home
--- OUTSIDE RECORDS SUMMARY | 2023-10-30 07:59 | XMS_ITS | Continuity of Care Document ---
Author Name Unknown Organization [facility] Address [address] [place] [id number] Encounter LTTL_[facility] FIN NBR [id number] Date(s): 07/23/23 - 07/23/[address] [address]- [place] Encounter Diagnosis Routine screening for STI (sexually transmitted infection)(Discharge Diagnosis) - 07/23/23 Dysuria(Discharge Diagnosis) - 07/23/23 Encounter for screening for infections with a predominantly sexual mode of transmission(Final) - Dysuria(Final) - Irregular menstruation, unspecified(Final) - Discharge Disposition: Home or Self Care Attending Physician: Sally Kelly Admitting Physician: Sally Kelly Referring Physician: Sally Kelly Allergies, Adverse Reactions, Alerts No Known Allergies Assessment and Plan Future Scheduled Tests Laboratory* Beta hCG Quantitative 02/16/23 Immunizations Given and Recorded Vaccine Date Status Refusal Reason tetanus/diphth/pertuss (Tdap) adult/adol 1 07/21/16 Recorded 1Result Comment: Unit: Unknown Medications FLUoxetine 40 mg oral capsule 40 mg = 1 cap, Oral, Daily, # 90 cap, 4 Refill(s), Pharmacy: [facility] #[facility], 157, cm, 01/19/23 8:47:00 EST, Height/Length Dosing, 54, kg, 01/19/23 8:47:00 EST, Weight Dosing Start Date: 02/12/23 Stop Date: 05/07/24 Status: Ordered NuvaRing 0.120 mg-0.015 mg/24 hours vaginal ring See Instructions, INSERT 1 RING VAGINALLY DIRECTED. LEAVE IN FOR 24 DAYS THEN INSERT NEW RING 4 DAYS LATER, # 3 ring, 4 Refill(s), Pharmacy: [facility], 157, cm, 01/19/23 8:47:00 EST, [...] 02/20/23 Completed Extraction of wisdom tooth Completed Results Laboratory List Name Date Chlamydia trachomatis and Neisseria gono rrhoeae ([facility]) 07/23/23 .Urinalysis POCT 07/23/23 Urine Qual POCT 07/23/23 Most recent to oldest [Reference Range]: 1 Method of Collect POC clean catch *NA* (07/23/23 11:32 AM) Specific [place], Ur POC 1.005 *NA* (07/23/23 11:32 AM) Specimen Color POC [Yellow] Light Yellow (07/23/23 11:32 AM) Glucose, Urine POC Negative mg/dL *NA* (07/23/23 11:32 AM) Bilirubin, Urine POC [Negative] Negative (07/23/23 11:32 AM) Ketones, Urine POC [Negative mg/dL] Nega tive mg/dL (07/23/23 11:32 AM) Blood, Urine POC [Negative] Negative (07/23/23 11:32 AM) pH, Urine POC 6.00 *NA* (07/23/23 11:32 AM) Protein, Urine POC [Negative mg/dL] Nega tive mg/dL (07/23/23 11:32 AM) Urobilinogen, Urine POC [0.2] 0.2 (07/23/23 11:32 AM) Nitrite, Urine POC [Negative] Negative (07/23/23 11:32 AM) Leuk Esterase, Urine POC [Negative] Nega tive (07/23/23 11:32 AM) Clarity, Urine POC [Clear] Clear (07/23/23 11:32 AM) Chlamydia trachomatis DNA -[facility] [No t Detected] Not Detected (07/23/23 11:37 AM) Neisseria gonorrhoeae DNA -[facility] [No t Detected] Not Detected (07/23/23 11:37 AM) U Preg POCT [Negative] Negative (07/23/23 11:28 AM) Orders for Microbiology Reports Name Date Urine Culture 07/23/23 Microbiology Reports TEST:Urine Culture STATUS:Order in Progress BODY SITE: SOURCE:Urine, Clean Catch COLLECTED DATE/TIME:07/23/23 11:38 AM PRELIMINARY REPORT No growth first am read Social History Social History Type Response Tobacco Never tobacco user T obacco Use:. Sex Patient Care team information Care Team Related Persons Name: AUBREY ALVAREZ Address: Home
--- OUTSIDE RECORDS SUMMARY | 2023-10-30 07:59 | XMS_ITS | Continuity of Care Document ---
Author Name Unknown Organization [facility] Address [address] [place] [id number] Encounter [facility]_UT FIN NBR [id number] Date(s): 02/16/23 - 02/16/23 [facility] [address] [place] [address]- us Discharge Disposition: Home or Self Care Attending Physician: KATHI HERRERA Admitting Physician: KATHI HERRERA Allergies, Adverse Reactions, Alerts No Known Allergies Assessment and Plan Future Scheduled Tests Laboratory* Beta hCG Quantitative 02/16/23 Medications FLUoxetine 40 mg oral capsule 40 mg = 1 cap, Oral, Daily, # 90 cap, 4 Refill(s), Pharmacy: [facility], 157, cm, 01/19/23 8:47:00 EST, Height/Length Dosing, 54, kg, 01/19/23 8:47:00 EST, Weight Dosing Start Date: 02/12/23 Stop Date: 05/07/24 Status: Ordered NuvaRing 0.120 mg-0.015 mg/24 hours vaginal ring 1 EA, VAG, every 4 wk, # 1 EA, 0 Refill(s) Start Date: 01/19/23 Status: Ordered Results Radiology Reports * Exam Date Time Procedure Performing Provider Status 02/16/23 2:41 PM US OB Transvaginal Sonya Lamar; Auth (Verified) Notes: (US OB Transvaginal) Reason For Exam: POSITVE US OB Transvaginal EXAM DESCRIPTION: US OB Transvaginal 02/16/2023 INDICATION: POSITVE TECHNIQUE: Transvaginal Grayscale obstetric ultrasound. Static and cine clip images were obtained. COMPARISON: None FINDINGS: Uterus measures 8.3 x 5.4 x 3.6 cm. No intrauterine gestational sac identified. Small amount of fluid in the endometrial canal. Right ovary measures 2.9 x 1.7 x 1.5 cm and left ovary measures 3.2 x 2.5 x 1.8 cm. Small hypoechoic area associated with the left ovary which may reflect small corpus luteum. Otherwise, no solid or cystic ovarian lesion identified on either side. Color-flow analysis demonstrated bilateral ovarian blood flow. Mild free fluid in the cul-de-sac. IMPRESSION: No intrauterine gestational sac. Small hypoechoic area on the left ovary which may reflect small corpus luteum. Normal right ovary. Small amount of free fluid in the cul-de-sac Ectopic cannot be excluded based on this examination but is felt to be unlikely. JOB #: [id number] Final Signed by: Troy Mckinley MD Signed (Electronic Signature): 02/16/2023 2:47 pm Social History Social History Type Response Tobacco Never tobacco user T obacco Use:. Sex US transvaginal for * Troy Mckinley MD: VERIFY, VERIFY Event Display: Report EXAM DESCRIPTION: US OB Transvaginal 02/16/2023 INDICATION: POSITVE TECHNIQUE: Transvaginal Grayscale obstetric ultrasound. Static and cine clip images were obtained. COMPARISON: None FINDINGS: Uterus measures 8.3 x 5.4 x 3.6 cm. No intrauterine gestational sac identified. Small amount of fluid in the endometrial canal. Right ovary measures 2.9 x 1.7 x 1.5 cm and left ovary measures 3.2 x 2.5 x 1.8 cm. Small hypoechoic area associated with the left ovary which may reflect small corpus luteum. Otherwise, no solid or cystic ovarian lesion identified on either side. Color-flow analysis demonstrated bilateral ovarian blood flow. Mild free fluid in the cul-de-sac. IMPRESSION: No intrauterine gestational sac. Small hypoechoic area on the left ovary which may reflect small corpus luteum. Normal right ovary. Small amount of free fluid in the cul-de-sac Ectopic cannot be excluded based on this examination but is felt to be unlikely. JOB #: [id number] Final Signed by: Troy Mckinley MD Signed (Electronic Signature): 02/16/2023 2:47 pm Patient Care team information Care Team Related Persons Name: AUBREY ALVAREZ Address: Home
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
== END 2023-10-30 12:38 | disposition home or self-care (01) ==
PROVIDERS: Student in an Organized Health Care Education/Training Program; Emergency Provider Student in an Organized Health Care Education/Training Program; PCP Nurse Practitioner Family
DX: T58.02XA Toxic effect of carbon monoxide from motor vehicle exhaust, intentional self-harm, initial encounter (principal); R51.9 Headache, unspecified; Y92.015 Private garage of single-family (private) house as the place of occurrence of the external cause; F32.A Depression, unspecified
CPT/HCPCS: 00123; 80053; 80307; 81025; 82375; 82805; 93005; 96127; 96360; 99285; 36600; 80320; 80329; 81003; 81015; 85025; 93010

== ENCOUNTER 2024-01-18 15:29 | Outpatient (CLI) | payer MEDICAID, SELFPAY ==
[2024-01-18 14:47] LABS: HCG Quant, Pregnancy 144 mIU/mL (1-3)
== END 2024-01-18 15:30 | disposition home or self-care (01) ==
LOC: LBO 15:29
PROVIDERS: Obstetrics & Gynecology; PCP Nurse Practitioner Family; Visit Provider Obstetrics & Gynecology
DX: N92.6 Irregular menstruation, unspecified (principal); Z32.01 Encounter for pregnancy test, result positive
CPT/HCPCS: 36415; 84702

== ENCOUNTER 2024-01-21 08:19 | Outpatient (CLI) | payer MEDICAID, SELFPAY ==
[2024-01-21 12:38] LABS: HCG Quant, Pregnancy 154 mIU/mL (1-3)
== END 2024-01-21 08:20 ==
LOC: LBO 01-22 08:19
PROVIDERS: PCP Nurse Practitioner Family; Visit Provider Obstetrics & Gynecology
DX: N92.6 Irregular menstruation, unspecified (principal)
CPT/HCPCS: 36415; 84702

== ENCOUNTER 2024-01-28 10:32 | Outpatient (CLI) | payer MEDICAID, SELFPAY ==
[2024-01-28 10:06] LABS: HCG Quant, Pregnancy 280 mIU/mL (1-3)
== END 2024-01-28 10:33 | disposition home or self-care (01) ==
LOC: LBO 10:32
PROVIDERS: PCP Nurse Practitioner Family; Visit Provider Obstetrics & Gynecology
DX: N92.6 Irregular menstruation, unspecified (principal)
CPT/HCPCS: 36415; 84702

== ENCOUNTER 2024-01-31 08:53 | Outpatient (CLI) | payer MEDICAID, SELFPAY ==
[2024-01-31 08:54] LABS: Abs Immature Grans 0.01 10^3/uL (0.0-0.06); Absolute Basophil Count 0.04 10^3/uL (0.0-0.2); Absolute Eosinophil Count 0.14 10^3/uL (0.0-0.7); Absolute Lymphocyte Count 1.55 10^3/uL (1.2-3.4); Absolute Monocyte Count 0.32 10^3/uL (0.1-0.8); Absolute Neutrophil Count 3.04 10^3/uL (1.2-6.7); Basophils % 0.8; Eosinophils % 2.7; HCT 39.4 % (36.0-46.0); HGB 13.3 g/dL (11.2-15.7); Immature Grans % 0.2; Lymphocytes % 30.4; MCH 32.8 pg (27.0-33.0); MCHC 33.8 % (32.0-36.0); MCV 97 fL (80-95); MPV 8.3 fL (8.0-11.0); Monocytes % 6.3; Neutrophils % 59.6; Platelet Count 284 10^3/uL (130-400); RBC 4.06 10^6/uL (3.93-5.22); RDW 11.9 % (11.7-14.6); RDW-SD 42.3 fL
[2024-01-31 09:24] LABS: ALT 37 U/L (14-59); AST 18 U/L (15-37); Albumin 3.8 g/dL (3.4-5.0); Alkaline Phosphatase 74 U/L (46-116); Anion Gap 9.9 mmol/L (3-11); BUN 9 mg/dL (7-18); Bilirubin, Total 0.2 mg/dL (0.2-1.0); CO2 27.1 mmol/L (21.0-32.0); CREATININE 0.8 mg/dL (0.55-1.02); Calcium 8.6 mg/dL (8.5-10.1); Chloride 106 mmol/L (98-107); Estimated GFR 100.96 (mL/min/1.73m2); Glucose 88 mg/dL (74-106); HCG Quant, Pregnancy 101 mIU/mL (1-3); Potassium 3.9 mmol/L (3.5-5.1); Sodium 143 mmol/L (136-145); Total Protein 7.2 g/dL (6.4-8.2)
== END 2024-01-31 08:54 | disposition home or self-care (01) ==
PROVIDERS: PCP Nurse Practitioner Family; Visit Provider Student in an Organized Health Care Education/Training Program
DX: O36.80X0 Pregnancy with inconclusive fetal viability, not applicable or unspecified (principal)
CPT/HCPCS: 36415; 80053; 84702; 85025

== ENCOUNTER 2024-02-13 13:22 | Outpatient (CLI) | payer MEDICAID, SELFPAY ==
[2024-02-13 14:22] LABS: HCG Quant, Pregnancy 1 mIU/mL (1-3)
== END 2024-02-13 13:23 | disposition home or self-care (01) ==
LOC: LBO 13:26
PROVIDERS: PCP Nurse Practitioner Family; Visit Provider Student in an Organized Health Care Education/Training Program
DX: O36.80X0 Pregnancy with inconclusive fetal viability, not applicable or unspecified (principal)
CPT/HCPCS: 36415; 84702

== ENCOUNTER 2024-02-13 21:17 | Outpatient (REF) | payer MEDICAID, SELFPAY ==
[2024-02-13 21:36] LABS: Abs Immature Grans 0.02 10^3/uL (0.0-0.06); Absolute Basophil Count 0.05 10^3/uL (0.0-0.2); Absolute Eosinophil Count 0.13 10^3/uL (0.0-0.7); Absolute Lymphocyte Count 2.26 10^3/uL (1.2-3.4); Absolute Monocyte Count 0.42 10^3/uL (0.1-0.8); Absolute Neutrophil Count 4.55 10^3/uL (1.2-6.7); Basophils % 0.7; Eosinophils % 1.7; HCT 37.9 % (36.0-46.0); HGB 13.1 g/dL (11.2-15.7); Immature Grans % 0.3; Lymphocytes % 30.4; MCH 32.6 pg (27.0-33.0); MCHC 34.6 % (32.0-36.0); MCV 94 fL (80-95); MPV 9.1 fL (8.0-11.0); Monocytes % 5.7; Neutrophils % 61.2; Platelet Count 361 10^3/uL (130-400); RBC 4.02 10^6/uL (3.93-5.22); RDW 12.2 % (11.7-14.6); WBC 7.43 10^3/uL (4.4-10.8)
[2024-02-13 21:51] LABS: ALT 21 U/L (14-59); AST 15 U/L (15-37); Albumin 3.9 g/dL (3.4-5.0); Alkaline Phosphatase 67 U/L (46-116); Anion Gap 11.7 mmol/L (3-11); BUN 13 mg/dL (7-18); Bilirubin, Total 0.2 mg/dL (0.2-1.0); CO2 25.3 mmol/L (21.0-32.0); CREATININE 0.7 mg/dL (0.55-1.02); Calcium 9.1 mg/dL (8.5-10.1); Chloride 104 mmol/L (98-107); Estimated GFR 118.51 (mL/min/1.73m2); Glucose 83 mg/dL (74-106); Potassium 3.9 mmol/L (3.5-5.1); Sodium 141 mmol/L (136-145); Total Protein 7.2 g/dL (6.4-8.2)
== END 2024-02-13 21:18 | disposition home or self-care (01) ==
LOC: NCHCN 21:17
PROVIDERS: PCP Nurse Practitioner Family; Visit Provider Family Medicine
DX: S80.12XA Contusion of left lower leg, initial encounter (principal); R23.3 Spontaneous ecchymoses; M79.662 Pain in left lower leg
CPT/HCPCS: 80053; 85025

== ENCOUNTER 2024-08-19 15:00 | Emergency (ER) | payer MEDICAID, SELFPAY ==
--- NOTE | 2024-08-19 15:00 | RT.EKG_ITS ---
APPROVED REPORT Exam: Resting ECG Reason for Exam: dizziness Patient Location: E HR:82 bpm ECG Measurements Heart Rate 82 AXIS IN 137 P 71 QRSd 99 QRS 70 QT 356 T 42 QTc 416 Conclusion Sinus rhythm...normal P axis, V-rate 60- 99 Probable left atrial enlargement...P >50mS, <-0.10mV V1
[2024-08-19 15:05] VITALS: BP 147/97; PULSE 90; RESP 12; TEMP 36.7; O2SAT 98
--- NOTE | 2024-08-19 15:45 | DI.CT_ITS ---
Exam(s) CT HEAD WO EXAM: CT HEAD WO CLINICAL HISTORY: Head Injury LOC, Visual disturbances. TECHNIQUE: Imaging Protocol: Axial computed tomography images with coronal and sagittal reformatted images were created and reviewed COMPARISON: No exams were available for comparison FINDINGS: Ventricles and Extra axial spaces: Normal in size and morphology for the patient's age. Hemorrhage: None. Cerebral parenchyma: No evidence of acute infarct or mass. Midline shift: None. Brainstem/Cerebellum: Normal. Calvarium: Normal. Visualized Paranasal sinuses:Clear. Mastoids: Clear. Soft Tissues: Unremarkable. ORBITS: Unremarkable. PITUITARY: Not enlarged. IMPRESSION: No acute intracranial process. RADIATION DOSE DELIVERED: Total DLP DATA REPOSITORY: All CT scans at this facility are submitted to the National Radiology Data Registry (NRDR) Dose Index Registry (DIR) with the [employer] (ACR). RADIATION OPTIMIZATION: All CT scans at this facility use at least one of these dose optimization te chniques: automated exposure control; mA and/or kV adjustment per patient size (includes targeted exa ms where dose is matched to clinical indication); or iterative reconstruction.
[2024-08-19 16:18] VITALS: BP 118/79; PULSE 86; RESP 10; TEMP 36.7; O2SAT 98
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
[2024-08-19] MEDS: Ondansetron O.D.T. 4 MG TABEF PO (17:09)
[2024-08-19] MEDS: Ondansetron O.D.T. 4 MG TABEF, 3 TABS/BTL PO (17:17)
[2024-08-19 17:18] VITALS: BP 119/78; PULSE 78; RESP 16; O2SAT 98
== END 2024-08-19 17:26 | disposition home or self-care (01) ==
PROVIDERS: Emergency Provider Registered Nurse Emergency; PCP Nurse Practitioner Family
DX: H53.8 Other visual disturbances (principal); F07.81 Postconcussional syndrome
CPT/HCPCS: 81025; 93005; 99285; 70450; 93010; 99284

== ENCOUNTER 2024-10-20 18:41 | Outpatient (REF) | payer MEDICAID, SELFPAY ==
[2024-10-20 15:40] LABS: Abs Immature Grans 0.02 10^3/uL (0.0-0.06); Absolute Basophil Count 0.08 10^3/uL (0.0-0.2); Absolute Lymphocyte Count 2.15 10^3/uL (1.2-3.4); Absolute Monocyte Count 0.38 10^3/uL (0.1-0.8); Absolute Neutrophil Count 3.37 10^3/uL (1.2-6.7); Basophils % 1.3 %; Eosinophils % 4.8 %; HCT 38.2 % (36.0-46.0); HGB 13.2 g/dL (11.2-15.7); Immature Grans % 0.3 %; Lymphocytes % 34.1 %; MCH 32.3 pg (27.0-33.0); MCHC 34.6 % (32.0-36.0); MCV 93 fL (80-95); MPV 8.7 fL (8.0-11.0); Neutrophils % 53.5 %; Platelet Count 350 10^3/uL (130-400); RBC 4.09 10^6/uL (3.93-5.22); RDW 11.7 % (11.7-14.6)
[2024-10-20 16:49] LABS: ALT 15 U/L (14-59); AST 12 U/L (15-37); Albumin 3.8 g/dL (3.4-5.0); Alkaline Phosphatase 68 U/L (46-116); Anion Gap 9.9 mmol/L (3-11); BUN 10 mg/dL (7-18); Bilirubin, Total 0.22 mg/dL (0.2-1.0); CO2 26.1 mmol/L (21.0-32.0); CREATININE 0.8 mg/dL (0.55-1.02); Calcium 9.1 mg/dL (8.5-10.1); Calculated LDL 131 mg/dL (<100); Chloride 105 mmol/L (98-107); Cholesterol 251 mg/dL (<200); Estimated GFR 100.96 (mL/min/1.73m2); Glucose 92 mg/dL (74-106); HDL Cholesterol 100 mg/dL (40-60); Potassium 3.9 mmol/L (3.5-5.1); Sodium 141 mmol/L (136-145); TSH (W/Ref FT4) 1.25 uIU/mL (0.36-3.74); Total Protein 7.3 g/dL (6.4-8.2); Triglyceride 102 mg/dL (<150); Vitamin D 25 Total 20.6 ng/mL (30-100)
== END 2024-10-20 18:42 | disposition home or self-care (01) ==
LOC: NCHCN 18:41
PROVIDERS: PCP Nurse Practitioner Family; Visit Provider Nurse Practitioner Family
DX: Z82.49 Family history of ischemic heart disease and other diseases of the circulatory system (principal); R53.83 Other fatigue; Z00.00 Encounter for general adult medical examination without abnormal findings
CPT/HCPCS: 80053; 80061; 82306; 84443; 85025

== ENCOUNTER 2024-11-01 23:05 | Emergency (ER) | payer MEDICAID, SELFPAY ==
[2024-11-01 23:05] VITALS: BP 131/98; PULSE 108; RESP 18; TEMP 36.8; O2SAT 99
--- NOTE | 2024-11-01 23:37 | W.ED.GENAD ---
Discharge Plan Discharge Details Chief Complaint: PsychEval Clinical Impression: Alcohol intoxication, Depression Primary Care Provider: Gina Crawford ED Provider: Ken Quintana Home Meds and New Rx's Prescriptions: No Action venlafaxine 75 mg tablet 75 mg PO DAILY dextroamphetamine-amphetamine [Adderall XR] 25 mg capsule,extended release 24hr 25 mg PO DAILY albuterol sulfate 90 mcg/actuation HFA aerosol inhaler 2 puff inhalation Q6H PRN (Reason: shortness of breath or wheezing) Qty: 8.5 0RF sumatriptan succinate [Imitrex] 25 MG tablet 25 mg PO BID PRN PRN (Reason: Headache) Qty: 6 0RF HPI General Date/Time Provider Initiated Documentation: 11/01/24 23:18. HPI Narrative: This is a pleasant 33-year-old female with a past medical history of depression and previous suicide attempt almost exactly 1 year ago via carbon monoxide poisoning who presents today for mental health evaluation. From a historical context, patient was seen about 1 year ago, she was cleared and scheduled for outpatient mental health services to help with depression. She has been doing well, eventually she had an elective episode of inpatient psychiatric admission at [facility] back in January. She was started on venlafaxine, and had outpatient resources and had been doing very well. Unfortunately your initial psychiatrist left the practice, and her initial counselor was no longer seeing adults. Unfortunately she was not able to follow-up with her mental health advocates because of this for quite some time over the last few months. She has been taking her medications as prescribed but has been missing occasional days on the weekends. Over the last few days she has felt notably alone, and somewhat despondent because of this. She did reach out to her psychiatrist to be seen, but did not have a date until the sixth. She called them yesterday out of concern that she may need to be seen sooner than this. This evening she elected to drink vodka, eventually she was found in her home by her mother, with a plastic bag over her head, breathing helium and drinking vodka. Police were called. Eventually she was brought to the ER for further evaluation. She denies any illicit desire to end her life, she does state that she just wants things to be different. She denies any explicit homicidal and suicidal ideations. She denies any auditory or visual hallucinations. She denies any drug use. She has no other complaints at this time. Related Data Home Medications ?Medication ?Instructions ?Recorded ?Confirmed sumatriptan succinate 25 mg tablet 25 mg PO BID PRN PRN Headache #6 14 11/01/24 (Imitrex) tabs albuterol sulfate 90 mcg/actuation 2 puff inhalation Q6H PRN 05/05/24 11/01/24 aerosol inhaler shortness of breath or wheezing #8.5 grams dextroamphetamine-amphetamine ER 25 mg PO DAILY 05/05/24 11/01/24 25 mg 24hr capsule,extend release (Adderall XR) venlafaxine 75 mg tablet 75 mg PO DAILY 05/05/24 11/01/24 Previous Rx's ?Medication ?Instructions ?Recorded sumatriptan succinate 25 mg tablet 25 mg PO BID PRN PRN Headache #6 04/15/14 (Imitrex) tabs albuterol sulfate 90 mcg/actuation 2 puff inhalation Q6H PRN 05/05/24 aerosol inhaler shortness of breath or wheezing #8.5 grams Allergies Allergy/AdvReac Type Severity Reaction Status Date / Time No Known Allergies Allergy Verified 11/01/24 23:20 General Stated Complaint: PsychEval DAVID: 2 Exam Narrative Exam Narrative: 1.Const: Well-nourished, Well-developed, appearing stated age 2.Eyes: PERRL, no conjunctival injection, and symmetrical lids. 3.ENT: Atraumatic external nose and ears. Moist MM. Neck: Symmetric, trachea midline, No thyromegaly. 4.CVS: +S1/S2, Peripheral pulses 2+ and equal in all extremities. Brisk capillary refill in all extremities. 5.RESP: Unlabored respiratory effort. Clear to auscultation bilaterally. No wheezes rales or rhonchi 6.GI: Soft, Nontender/Nondistended, No hepatosplenomegaly. No guarding or rebound. 7.MSK: Normocephalic/Atraumatic, Extremities w/o deformity or ttp No cyanosis or clubbing, Normal movement of all extremities 8.Skin: Warm, Dry. No rashes or lesions. 9.Neuro: stripper latex II-XII grossly intact. Sensation grossly intact, no focal neurologic deficits. 10.Psych: (AAO) x3. Sad and tearful affect, mildly intoxicated Course Vital Signs Vital signs: Vital Signs Temperature 36.8 C 11/01/24 23:05 Pulse 108 H 11/01/24 23:05 Respiratory Rate 18 11/01/24 23:05 Blood Pressure 131/98 H 11/01/24 23:05 Pulse Oximetry 99 11/01/24 23:05 Temperature 36.8 C 11/01/24 23:05 Temperature Source Temporal Artery Scan 11/01/24 23:05 Pulse 108 H 11/01/24 23:05 Respiratory Rate 18 11/01/24 23:05 Blood Pressure 131/98 H 11/01/24 23:05 Blood Pressure Position Sitting 11/01/24 23:05 Pulse Oximetry 99 11/01/24 23:05 Oxygen Delivery Method Room Air 11/01/24 23:05 Oxygen Flow Rate 0 11/01/24 23:05 Pain Level 0 11/01/24 23:05 Medical Decision Making This is a pleasant 33-year-old female with a past medical history of depression and previous suicide attempt almost exactly 1 year ago via carbon monoxide poisoning who presents today for mental health evaluation. From a historical context, patient was seen about 1 year ago, she was cleared and scheduled for outpatient mental health services to help with depression. She has been doing well, eventually she had an elective episode of inpatient psychiatric admission at [facility] back in January. She was started on venlafaxine, and had outpatient resources and had been doing very well. Unfortunately your initial psychiatrist left the practice, and her initial counselor was no longer seeing adults. Unfortunately she was not able to follow-up with her mental health advocates because of this for quite some time over the last few months. She has been taking her medications as prescribed but has been missing occasional days on the weekends. Over the last few days she has felt notably alone, and somewhat despondent because of this. She did reach out to her psychiatrist to be seen, but did not have a date until the sixth. She called them yesterday out of concern that she may need to be seen sooner than this. This evening she elected to drink vodka, eventually she was found in her home by her mother, with a plastic bag over her head, breathing helium and drinking vodka. Police were called. Eventually she was brought to the ER for further evaluation. She denies any illicit desire to end her life, she does state that she just wants things to be different. She denies any explicit homicidal and suicidal ideations. She denies any auditory or visual hallucinations. She denies any drug use. She has no other complaints at this time. Exam demonstrates a well-appearing female who is somewhat sad and tearful. She appears mildly intoxicated. No other concerning abnormalities noted on exam. No signs of trauma. She certainly does not appear overtly suicidal at this time. No indication for involuntary admission. We will monitor the patient closely, medically clear her, check her alcohol level, monitor throughout the night and reassess for mental health screening in the morning once she is sober. 6:15 AM Laboratory workup benign, alcohol level mildly elevated, however patient now demonstrates both clinical sobriety, and where at this stage where she has metabolized to 0. The patient slept well throughout the night. Patient continues to have no homicidal or suicidal ideations. We will consult mental health for evaluation. Patient will be signed out to my colleague for final disposition post mental health assessment Quality:SDOH Health Related Social Needs: No Data to Display PFSH All Active Problems (Updated 11/02/24 @ 06:17 by Ken Quintana DO) Depression (Chronic) Alcohol intoxication (Acute) Social History Smoking/Tobacco Use Status: Never Smoking risk assessment performed?: Yes Alcohol Intake: current Alcohol Intake frequency: a few times a month Alcohol type: beer, wine and hard liquor Drug use: Never Substance use type: does not use Housing: house Do you feel safe at home: Yes Do you feel safe in your relationship?: Yes PAWSS Have you Been Recently Intoxicated or Drunk Within the Last 30 days?: No Have you Ever Experienced Previous Episodes of Alcohol Withdrawal?: No Have you ever Experienced Withdrawal Seizures?: No Have you ever Experienced Delirium Tremens(DT)s?: No Have you ever undergone Alcohol Rehabilitation Treatment (i.e, inpt ot outpatient treatment programs)?: No Have you ever Experienced Blackouts?: No Have you ever Combined Alcohol with other Downers within the last 90 days?: No Have you ever Combined Alcohol with any other Substance of Abuse during the last 90 days?: No Positive Blood Alcohol level on Presentation? [PCS.BAL]: No Evidence of Increased Autonomic Activity (i.e. HR>120, tremor, sweating, agitation, nausea)?: No Result: 0
[2024-11-01 23:47] LABS: BE (Venous) 1 mmol/L (-2-3); HCO3 (Venous) 26 mmol/L (23-28); O2 Sat (Venous) 48 %; TCO2 (Venous) 24 mmol/L (24-29); pCO2 (Venous) 45 mmHg (41-51); pH (Venous) 7.37 (7.31-7.41); pO2 (Venous) 28 mmHg
[2024-11-01 23:48] LABS: Abs Immature Grans 0.02 10^3/uL (0.0-0.06); Absolute Basophil Count 0.08 10^3/uL (0.0-0.2); Absolute Eosinophil Count 0.15 10^3/uL (0.0-0.7); Absolute Lymphocyte Count 1.67 10^3/uL (1.2-3.4); Absolute Monocyte Count 0.35 10^3/uL (0.1-0.8); Absolute Neutrophil Count 3.99 10^3/uL (1.2-6.7); Basophils % 1.3 %; Eosinophils % 2.4 %; HGB 13.2 g/dL (11.2-15.7); Immature Grans % 0.3 %; Lymphocytes % 26.7 %; MCH 31.8 pg (27.0-33.0); MCHC 33.8 % (32.0-36.0); MCV 94 fL (80-95); MPV 8.3 fL (8.0-11.0); Monocytes % 5.6 %; Neutrophils % 63.7 %; Platelet Count 321 10^3/uL (130-400); RBC 4.15 10^6/uL (3.93-5.22); RDW 11.7 % (11.7-14.6); RDW-SD 40.3 fL; WBC 6.26 10^3/uL (4.4-10.8)
[2024-11-02 00:09] LABS: *AMPHETAMINES SCREEN URINE Positive (Negative); *BARBITURATES SCREEN URINE Negative (Negative); *BENZODIAZEPINES SCREEN URINE Negative (Negative); Cannabinoids THC Negative (Negative); Cocaine Screen,Urine Negative (Negative); METHADONE URINE SCREEN Negative (Negative); OPIATES URINE SCREEN Negative (Negative)
[2024-11-02 00:10] LABS: Tricyclic Antidepressants Negative (Negative)
[2024-11-02 00:13] LABS: ALT 18 U/L (14-59); AST 14 U/L (15-37); Albumin 3.6 g/dL (3.4-5.0); Alkaline Phosphatase 73 U/L (46-116); Anion Gap 10.9 mmol/L (3-11); BUN 10 mg/dL (7-18); CO2 26.1 mmol/L (21.0-32.0); CREATININE 0.8 mg/dL (0.55-1.02); Calcium 8.5 mg/dL (8.5-10.1); Chloride 109 mmol/L (98-107); ETHANOL BLOOD 84.4 mg/dL (<10); Estimated GFR 100.96 (mL/min/1.73m2); Glucose 110 mg/dL (74-106); Potassium 4.1 mmol/L (3.5-5.1); Sodium 146 mmol/L (136-145); Total Protein 7.3 g/dL (6.4-8.2)
[2024-11-02 00:26] LABS: Bilirubin, Total < 0.10 mg/dL (0.2-1.0)
[2024-11-02 03:01] LABS: Salicylate < 2.8 mg/dL (<2.8)
[2024-11-02 03:02] LABS: Acetaminophen < 2 ug/mL (10-30)
[2024-11-02 06:08] LABS: Lab Add On Test DONE
[2024-11-02 07:18] VITALS: BP 104/74; PULSE 92; RESP 16; O2SAT 96
--- NOTE | 2024-11-02 11:36 | ED.PROG_ITS ---
Date of service: 11/02/24 Time of Service: 11:36 Medical Decision Making Care was signed out by Dr. Quintana, please see his documentation regarding initial ED presentation and course. Patient medically clear at time of signout awaiting crisis evaluation. Patient was seen by crisis screener who is recommending discharge with safety plan and plan for care bed respite stay 1 available in a few days. Patient is agreeable with this plan. Quality:SDOH Health Related Social Needs: No Data to Display Discharge Plan Disposition Patient Disposition: Home Condition: Stable Discharge Details Clinical Impression: Alcohol intoxication, Depression Primary Care Provider: Gina Crawford ED Provider: Real Espinal Home Meds and New Rx's Prescriptions: Continued venlafaxine 75 mg tablet 75 mg PO DAILY dextroamphetamine-amphetamine [Adderall XR] 25 mg capsule,extended release 24hr 25 mg PO DAILY albuterol sulfate 90 mcg/actuation HFA aerosol inhaler 2 puff inhalation Q6H PRN (Reason: shortness of breath or wheezing) Qty: 8.5 0RF Discontinued sumatriptan succinate [Imitrex] 25 MG tablet 25 mg PO BID PRN PRN (Reason: Headache) Qty: 6 0RF Discharge Instructions Instructions: Alcohol Intoxication ED, Depression in adults - Discharge instructions Additional Instructions: Please follow-up with [facility] [employer] as instructed. Please contact your primary care physician to arrange follow-up. Return to the ER immediately for any worsening or new concerning symptoms. Referrals: [facility] [Provider Group] Gina Crawford [Primary Care Provider] -
[2024-11-02 11:49] VITALS: BP 123/84; PULSE 85; RESP 16; O2SAT 98
--- NOTE | 2024-11-03 11:56 | PDOC.MHCN ---
Date of service: 11/02/24 Time of Service: 09:30 Mental Health Emergency Note Release [facility] release signed:: Yes Reason for Visit Client had attempted to take her life by taping a bag over her head. In the last 2 weeks has the pt presented for ES prior to today?: Yes, presented at Client Information Client is: Adult Outpatient Well Housed: Yes Non Suicidal Self Injury Current: No History: yes, No current SI/HI Safety Risk/Harm to Self or Others Current Ideation to Harm Self or Others: No Risk: Does risk to harm exist?: yes. Risk: Moderate Risk Asssessment/Mental Status Appearance: Disheveled Attitude: Cooperative and Friendly Behavior: Unremarkable Speech: Normal Affect: Normal Mood: Elevated, Sad, Stressed, Depressed and Anxious Thought process: Unremarkable Hallucinations: No Delusions: No Impression Client reported not currently feeling SI. Client shared that she had a fight with her partner and went home, drank too much and taped a bag over her head in an attempt to end her life. Client shared that last year she had also attempted to end her life. Client recently was dropped from her therapists case load and wasn't given anyone in her leave and had been struggling. She believes her medications need to be reevaluated and that seasonal depression adds to her mood this time of year. Resources [facility] reviewed and given:: 988, Crisis Bed, Community therapist and [facility] Plan/Disposition Recommended Disposition: Crisis bed, facility contacted. Status of Crisis Bed acceptance: Pending review, [facility] Services [facility] Services: Therapy and Psychiatric Evaluation, Therapy, Psych Screening, Med management and Community resources. Plan: Client is in agreement that she does need a higher level of care, but is unwilling to go to an inpatient facility. Client is willing to go to the Care Bed and have a psych eval and med management. [facility] will send referral for care bed, therapy and med management. [facility] safety planned client home after a conversation with her partner about safety and completing daily check ins until placed in the care bed. Person reported agreement to plan: Yes Reports/communication Outcome discussed with: ED/Personnel Final Disposition/Discharge Final accepting facility/transferred to: Care Bed/Crisis Bed
== END 2024-11-02 12:09 | disposition home or self-care (01) ==
PROVIDERS: Student in an Organized Health Care Education/Training Program; Emergency Provider Student in an Organized Health Care Education/Training Program; PCP Nurse Practitioner Family
DX: F32.A Depression, unspecified (principal); F10.920 Alcohol use, unspecified with intoxication, uncomplicated
CPT/HCPCS: 123; 36415; 80053; 80307; 81025; 82805; 99283; 00123; 80320; 80329; 84443; 85025

== ENCOUNTER 2024-12-22 19:52 | Outpatient (REF) | payer MEDICAID, SELFPAY ==
[2024-12-22 17:07] LABS: Bilirubin Negative (Negative); Blood Negative (Negative); Clarity Clear (Clear); Glucose Negative (Negative); Ketones Negative (Negative); Leukocyte Esterase Negative (Negative); Nitrite Negative (Negative); Specific Gravity 1.025 (1.005-1.025); Urobilinogen 0.2 mg/dL (Up to 0.2); pH 5.5 (5-8)
== END 2024-12-22 19:53 | disposition home or self-care (01) ==
LOC: LBN 19:52
PROVIDERS: PCP Nurse Practitioner Family; Visit Provider Physician Assistant
DX: N39.0 Urinary tract infection, site not specified (principal); N10 Acute pyelonephritis
CPT/HCPCS: 81003; 87086

== ENCOUNTER 2024-12-25 14:04 | Emergency (ER) | payer MEDICAID, SELFPAY ==
[2024-12-25 14:05] VITALS: BP 137/84; PULSE 77; RESP 20; TEMP 36.3; O2SAT 100
--- NOTE | 2024-12-25 14:15 | DI.CT_ITS ---
Exam(s) CT RENAL COLIC WO EXAM: CT RENAL COLIC WO CLINICAL HISTORY: right flank pain. TECHNIQUE: Imaging Protocol: Axial computed tomography images with coronal and sagittal reformatted images were created and reviewed. CONTRAST MATERIAL: Noncontrast COMPARISON: No exams were available for comparison FINDINGS: ABDOMEN: Lung Bases: Normal where visualized. Liver: Normal attenuation. No measurable mass. Gallbladder and biliary tract: No radiodense calculus or dilation. Pancreas: Normal density, no calcifications or inflammatory process. Spleen: Normal. Kidneys: Normal size, contour and axis. No radiodense stones or obstructive uropathy. No masses seen. Adrenal glands: No masses seen. Abdominal Aorta: Abdominal portion non-dilated. Soft tissues: Unremarkable. PELVIS: Bladder: Symmetric distention, no gross wall thickening. No evidence of stones.No visible mass. Bowel: No obstruction or bowel wall thickening. Appendix is normal. Moderate quantity of stool. Reproductive: Unremarkable. Peritoneal cavity: No ascites, collection or mesenteric inflammatory response. Bones: Unremarkable for age. IMPRESSION: Unremarkable noncontrast CT scan of the abdomen and pelvis. No evidence of renal calculi or hydronephrosis. RADIATION DOSE DELIVERED: Total DLP DATA REPOSITORY: All CT scans at this facility are submitted to the National Radiology Data Registry (NRDR) Dose Index Registry (DIR) with the [employer] (ACR). RADIATION OPTIMIZATION: All CT scans at this facility use at least one of these dose optimization te chniques: automated exposure control; mA and/or kV adjustment per patient size (includes targeted exa ms where dose is matched to clinical indication); or iterative reconstruction.
--- NOTE | 2024-12-25 14:29 | ED.GENADUL_ITS ---
Discharge Plan Disposition Patient Disposition: Home Condition: Stable Discharge Details Clinical Impression: Abdominal pain Primary Care Provider: Gina Crawford ED Provider: Yan Jimenez Home Meds and New Rx's Prescriptions: New phenazopyridine [Pyridium] 200 mg tablet 200 mg PO TID PRN (Reason: pain) Qty: 9 0RF Continued venlafaxine 75 mg tablet 75 mg PO DAILY dextroamphetamine-amphetamine [Adderall XR] 25 mg capsule,extended release 24hr 25 mg PO DAILY albuterol sulfate 90 mcg/actuation HFA aerosol inhaler 2 puff inhalation Q6H PRN (Reason: shortness of breath or wheezing) Qty: 8.5 0RF etonogestrel-ethinyl estradiol 0.12-0.015 mg/24 hr ring 1 vag ring vaginal Q4W Rx Instructions: leave in place for 3 weeks of a 4-week cycle cefpodoxime 200 mg tablet 200 mg PO Q12H Qty: 20 0RF Rx Instructions: must administer with a meal/food Discharge Instructions Additional Instructions: Your blood work and CAT scan did not show any concerning findings. If your symptoms continue and recommend following up with either your primary care provider or SPIRITUAL ADVISOR. If you develop new symptoms such as high fevers or persistent vomiting return to the emergency department for reevaluation. You can take 1000 mg of acetaminophen and 600 mg of ibuprofen every 6 hours as needed. You can also try taking the Pyridium for any symptoms of UTI such as burning with urination HPI General Mode of arrival: ambulatory . Date/Time Provider Initiated Documentation: 12/25/24 14:06 . Limitations to Documentation: no limitations . Information obtained by: patient . History of Present Illness 34 year old F presents to the emergency department with the chief complaint of abdominal and flank pain, described as moderate, Quality is described as burning and aching, and is localized to the back and abdomen. Patient started experiencing this day(s) (4) and it has been constant. No relieving factors improve symptom(s), No exacerbating factors reported . Patient notes denies chest pain, fever/chills, nausea/vomiting and shortness of breath. Patient did receive the following treatments prior to arrival, none Related Data Home Medications ?Medication ?Instructions ?Recorded ?Confirmed albuterol sulfate 90 mcg/actuation 2 puff inhalation Q6H PRN 05/05/24 12/25/24 aerosol inhaler shortness of breath or wheezing #8.5 grams dextroamphetamine-amphetamine ER 25 mg PO DAILY 05/05/24 12/25/24 25 mg 24hr capsule,extend release (Adderall XR) venlafaxine 75 mg tablet 75 mg PO DAILY 05/05/24 12/25/24 cefpodoxime 200 mg tablet 200 mg PO Q12H #20 tabs 12/22/24 12/25/24 etonogestrel 0.12 mg-ethinyl 1 vag ring vaginal Q4W 12/22/24 12/25/24 estradiol 0.015 mg/24 hr vaginal ring phenazopyridine 200 mg tablet 200 mg PO TID PRN pain #9 tabs 12/25/24 (Pyridium) Previous Rx's ?Medication ?Instructions ?Recorded albuterol sulfate 90 mcg/actuation 2 puff inhalation Q6H PRN 05/05/24 aerosol inhaler shortness of breath or wheezing #8.5 grams cefpodoxime 200 mg tablet 200 mg PO Q12H #20 tabs 12/22/24 phenazopyridine 200 mg tablet 200 mg PO TID PRN pain #9 tabs 12/25/24 (Pyridium) Allergies Allergy/AdvReac Type Severity Reaction Status Date / Time No Known Allergies Allergy Verified 12/25/24 14:13 General Stated Complaint: Urinary DAVID: 4 Review of Systems All systems reviewed & are unremarkable except as noted in HPI and below Constitutional Constitutional: Denies chills, Denies fever(s) and Denies weakness Cardiovascular Cardiovascular: Denies chest pain and Denies dyspnea Respiratory Respiratory: Denies cough and Denies dyspnea Gastrointestinal Gastrointestinal: Reports abdominal pain, Denies nausea and Denies vomiting Genitourinary Genitourinary: Denies dysuria Neurologic Neurologic: Denies weakness Exam Const General: no acute distress Orientation: alert [facility] Head: normal to inspection Ears: external ears normal General nose exam: external nose normal Mouth: moist mucous membranes Eyes General: appearance normal, both eyes and all related structures Neck Neck: normal visual inspection Resp Effort & Inspection: normal respiratory effort and able to speak in complete sentences Cardio Rate: regular rate GI Palpation: soft, not firm, not rigid and tender Back/Spine/Pelvis Back: no CVA tenderness Skin General skin exam: no rashes or lesions noted Neuro General: patient alert and patient oriented x3 Extrem General: normal to inspection Psych Mental Status: mental status grossly normal Course Vital Signs Vital signs: Vital Signs Temperature 36.3 C L 12/25/24 14:05 Pulse 77 12/25/24 14:05 Respiratory Rate 20 12/25/24 14:05 Blood Pressure 137/84 12/25/24 14:05 Pulse Oximetry 100 12/25/24 14:05 Temperature 36.3 C L 12/25/24 14:05 Temperature Source Oral 12/25/24 14:05 Pulse 77 12/25/24 14:05 Respiratory Rate 20 12/25/24 14:05 Blood Pressure 137/84 12/25/24 14:05 Blood Pressure Position Sitting 12/25/24 14:05 Pulse Oximetry 100 12/25/24 14:05 Oxygen Delivery Method Room Air 12/25/24 14:05 Oxygen Flow Rate 0 12/25/24 14:05 Pain Level 6 12/25/24 14:05 Medical Decision Making 34-year-old female comes in with 3 to 4 days of feeling a sensation of burning in the suprapubic area, along with right lower back and lower abdomen pain. She was seen at [facility] and put on antibiotics for possible kidney infection, her urine culture from that is just growing gram-positive rai mixed. She has not had any fevers or vomiting. She is not improving with antibiotics so she came here for an evaluation. She is stable on arrival. She localizes the pain to the right lower back and also has some right lower quadrant tenderness without guarding or rebound. She denies any vaginal bleeding or discharge. Given the location of the pain we will obtain a CBC, CMP, UA and a CT renal colic to evaluate for possible kidney stone. She has no guarding or rebound on abdominal exam so less concern for appendicitis. Could have also an ovarian cyst. Labs and imaging unremarkable, patient stable. UA pending. If this is negative plan for discharge and advise she should follow-up with her PCP or SPIRITUAL ADVISOR. Return precautions given Differential Diagnosis Differential Diagnosis: kidney stone, uti, ovarian cyst Medical Records Medical records reviewed: Yes I reviewed the patient's medical records. Lab Data Lab results reviewed: Yes I reviewed the patient's lab results. Quality:SDOH Health Related Social Needs: No Data to Display PFSH All Active Problems (Updated 12/25/24 @ 16:00 by Yan Jimenez MD) Abdominal pain (Acute) Social History Smoking/Tobacco Use Status: Never Smoking risk assessment performed?: Yes Alcohol Intake: current Alcohol Intake frequency: a few times a month Alcohol type: beer, wine and hard liquor Drug use: Never Substance use type: does not use Housing: house Do you feel safe at home: Yes Do you feel safe in your relationship?: Yes
[2024-12-25] MEDS: Ketorolac 15 MG/ML VIAL IVP (14:50)
[2024-12-25 14:57] LABS: Abs Immature Grans 0.01 10^3/uL (0.0-0.06); Absolute Basophil Count 0.04 10^3/uL (0.0-0.2); Absolute Eosinophil Count 0.15 10^3/uL (0.0-0.7); Absolute Lymphocyte Count 1.84 10^3/uL (1.2-3.4); Absolute Monocyte Count 0.32 10^3/uL (0.1-0.8); Absolute Neutrophil Count 2.58 10^3/uL (1.2-6.7); Basophils % 0.8 %; HCT 41.1 % (36.0-46.0); HGB 13.7 g/dL (11.2-15.7); Immature Grans % 0.2 %; Lymphocytes % 37.2 %; MCH 31.8 pg (27.0-33.0); MCHC 33.3 % (32.0-36.0); MCV 95 fL (80-95); MPV 8.2 fL (8.0-11.0); Monocytes % 6.5 %; Neutrophils % 52.3 %; Platelet Count 302 10^3/uL (130-400); RBC 4.31 10^6/uL (3.93-5.22); RDW 11.7 % (11.7-14.6); RDW-SD 40.9 fL; WBC 4.94 10^3/uL (4.4-10.8)
[2024-12-25 15:14] LABS: ALT 25 U/L (14-59); AST 15 U/L (15-37); Albumin 3.7 g/dL (3.4-5.0); Alkaline Phosphatase 66 U/L (46-116); Anion Gap 5.9 mmol/L (3-11); BUN 9 mg/dL (7-18); Bilirubin, Total 0.23 mg/dL (0.2-1.0); CO2 30.1 mmol/L (21.0-32.0); CREATININE 0.7 mg/dL (0.55-1.02); Calcium 8.9 mg/dL (8.5-10.1); Chloride 103 mmol/L (98-107); Estimated GFR 117.77 (mL/min/1.73m2); Glucose 83 mg/dL (74-106); Lipase 36 U/L (<78); Magnesium 2.2 mg/dL (1.8-2.4); Sodium 139 mmol/L (136-145); Total Protein 7.4 g/dL (6.4-8.2)
[2024-12-25 15:55] LABS: Bilirubin Negative (Negative); Blood Moderate (Negative); Clarity Clear (Clear); Glucose Negative (Negative); Ketones Negative (Negative); Leukocyte Esterase Negative (Negative); Nitrite Negative (Negative); Urobilinogen 0.2 mg/dL (Up to 0.2)
[2024-12-25 16:14] VITALS: BP 115/70; PULSE 71; RESP 18; TEMP 37.1; O2SAT 100
[2024-12-25 16:44] LABS: Bacteria Negative HPF (Negative); C & S Indicated? No; Casts Negative LPF (Negative); Crystals Negative HPF (Negative); Epithelial Cells Negative HPF (Negative); Mucus Negative (Negative); WBC Negative HPF (0-5)
== END 2024-12-25 16:16 | disposition home or self-care (01) ==
PROVIDERS: Emergency Provider Emergency Medicine; PCP Nurse Practitioner Family
DX: R10.31 Right lower quadrant pain (principal)
CPT/HCPCS: 36415; 80053; 81025; 83690; 96374; 99284; 74176; 81003; 81015; 83735; 85025; J1885

== ENCOUNTER 2025-04-01 12:37 | Outpatient (REF) | payer MEDICAID, SELFPAY ==
[2025-04-01 16:00] LABS: Bacteria Rare HPF (Negative); C & S Indicated? C&S Done As Ordered; Casts Negative LPF (Negative); Crystals Negative HPF (Negative); Epithelial Cells Few HPF (Negative); Mucus Negative (Negative); RBC 20-50 HPF (0-2)
== END 2025-04-01 12:38 | disposition home or self-care (01) ==
LOC: LBN 12:37
PROVIDERS: PCP Nurse Practitioner Family; Visit Provider Physician Assistant Medical
DX: N39.0 Urinary tract infection, site not specified (principal)
CPT/HCPCS: 87077; 81015; 87086; 87186

== ENCOUNTER 2025-07-24 19:36 | Outpatient (REF) | payer MEDICAID, SELFPAY ==
[2025-07-27 11:19] LABS: Chlamydia Result Negative (Negative); GC Result Negative (Negative)
== END 2025-07-24 19:37 | disposition home or self-care (01) ==
LOC: NCHCN 19:36
PROVIDERS: PCP Nurse Practitioner Family; Visit Provider Nurse Practitioner Family
DX: R10.84 Generalized abdominal pain (principal)
CPT/HCPCS: 87491; 87591

== ENCOUNTER 2025-08-15 15:28 | Outpatient (REF) | payer MEDICAID, SELFPAY ==
[2025-08-15 15:51] LABS: Glucose Color Interference mg/dL (Negative)
[2025-08-15 15:52] LABS: RBC 20-50 HPF (0-2); WBC >50 HPF (0-5)
== END 2025-08-15 15:29 | disposition home or self-care (01) ==
LOC: LBN 15:28
PROVIDERS: PCP Nurse Practitioner Family; Visit Provider Physician Assistant
DX: R30.0 Dysuria (principal)
CPT/HCPCS: 81003; 81015

== ENCOUNTER 2025-08-19 18:13 | Outpatient (REF) | payer MEDICAID, SELFPAY | END 2025-08-19 18:14 | disposition home or self-care (01) | LOC: LBN 18:13 | PROVIDERS: PCP Nurse Practitioner Family; Visit Provider Physician Assistant | DX: N39.0 Urinary tract infection, site not specified (principal) | CPT/HCPCS: 87086 ==

== ENCOUNTER 2025-08-20 08:44 | Emergency (ER) | payer MEDICAID, SELFPAY ==
[2025-08-20 08:46] VITALS: BP 113/73; PULSE 88; RESP 14; TEMP 35.2; O2SAT 98
[2025-08-20 08:53] VITALS: BP 113/73; PULSE 88; RESP 14; TEMP 35.2; O2SAT 98
[2025-08-20 09:26] VITALS: BP 122/55; PULSE 82; RESP 16; O2SAT 100
[2025-08-20 09:34] LABS: Abs Immature Grans 0.02 10^3/uL (0.0-0.06); HCT 39.3 % (36.0-46.0); HGB 13.0 g/dL (11.2-15.7); Immature Grans % 0.4 %; MCH 31.4 pg (27.0-33.0); MCHC 33.1 % (32.0-36.0); MCV 95 fL (80-95); MPV 8.2 fL (8.0-11.0); Platelet Count 304 10^3/uL (130-400); RBC 4.14 10^6/uL (3.93-5.22); RDW 11.6 % (11.7-14.6); RDW-SD 40.1 fL; WBC 4.51 10^3/uL (4.4-10.8)
[2025-08-20] MEDS: Ketorolac 15 MG/ML VIAL 7.5 MG IVP (09:39)
[2025-08-20 09:47] LABS: ALT 57 U/L (14-59); AST 30 U/L (15-37); Albumin 3.9 g/dL (3.4-5.0); Alkaline Phosphatase 92 U/L (46-116); Anion Gap 10.8 mmol/L (3-11); BUN 8 mg/dL (7-18); Bilirubin, Total 0.3 mg/dL (0.2-1.0); CO2 28.2 mmol/L (21.0-32.0); Calcium 8.8 mg/dL (8.5-10.1); Chloride 103 mmol/L (98-107); Estimated GFR 100.33 (mL/min/1.73m2); Glucose 67 mg/dL (74-106); Potassium 3.8 mmol/L (3.5-5.1); Sodium 142 mmol/L (136-145); Total Protein 7.1 g/dL (6.4-8.2)
--- NOTE | 2025-08-20 10:30 | DI.US_ITS ---
Exam(s) US RENAL EXAM: US RENAL CLINICAL HISTORY: flank pain. TECHNIQUE: Herrmann scale, color and spectral Doppler were used. COMPARISON: CT CT RENAL COLIC WO from 12/25/2024 FINDINGS: Renal size in cm: Right: 10.9. Left: 9.2. Echogenicity: Normal. Hydronephrosis: No. Cyst or mass: No. Nephrolithiasis: There is a single echogenic focus in each kidney which may represent a nonobstructing stone. Other findings: None. Bladder:The urinary bladder is incompletely distended limiting evaluation. No gross abnormalities identified. Ureteral jets: Right: Not visualized on this examination. Left: Not visualized on this examination. Prevoid vol:11 cc Renal color flow: Symmetric and within normal limits. IMPRESSION: 1. There is no evidence of hydronephrosis. 2. A single echogenic focus is seen in each kidney which may represent a nonobstructing stone. DATA REPOSITORY:
[2025-08-20 10:48] LABS: Glucose Negative (Negative)
[2025-08-20] MEDS: Normal Saline 1,000 ML 1000 ML IV (11:00)
--- NOTE | 2025-08-20 15:41 | ED.GENADUL_ITS ---
Discharge Plan Disposition Patient Disposition: Home Discharge Details Clinical Impression: Dysuria Primary Care Provider: Gina Crawford ED Provider: Park Kirkland Home Meds and New Rx's Prescriptions: Continued venlafaxine 75 mg tablet 75 mg PO DAILY dextroamphetamine-amphetamine [Adderall XR] 25 mg capsule,extended release 24hr 25 mg PO DAILY albuterol sulfate 90 mcg/actuation HFA aerosol inhaler 2 puff inhalation Q6H PRN (Reason: shortness of breath or wheezing) Qty: 8.5 0RF phenazopyridine [Pyridium] 200 mg tablet 200 mg PO TID PRN (Reason: pain) Qty: 6 0RF fluconazole 150 mg tablet 150 mg PO Q3D Qty: 2 0RF Rx Instructions: may repeat second dose 72 hrs after first dose if symptoms persist cephalexin 500 mg capsule 500 mg PO BID 7 Days Qty: 14 0RF Discharge Instructions Instructions: Dysuria (ED) Additional Instructions: Take Motrin 600 mg every 8 hours with food for the next several days Take the antibiotic until your urine culture returns Make sure you are drinking regular fluids Follow-up with urology and gynecology Your vaginal swabs are pending, we will notify you if they are abnormal Please follow-up with your doctor next week for reassessment and return earlier should you have new or worsening complaint Stand Alone Forms: Work Release Referrals: Yi Mclaughlin [NURSE PRACTITIONER, Medicine] Discharge Data Discharge Date/Time-TO BE ENTERED AT DEPARTURE: 08/20/25 13:34 HPI General Date/Time Provider Initiated Documentation: 08/20/25 08:50 . HPI Narrative: This 34-year-old female presents with recurrent urinary symptoms. She states that in the past she has followed up with urology given recurrent urinary tract infections. She states that she was diagnosed with a UTI 5 days ago and started on Macrobid. States she initially was feeling improvement but then started feeling worse yesterday. She had a urine culture that was sent however the results were not returned. She describes dysuria and frequency. She is sexually active and monogamous with her partner. She denies any significant back pain but states she has some lower discomfort. She denies any hematuria. She states her symptoms are similar to her prior urinary tract infections. Related Data Home Medications ?Medication ?Instructions ?Recorded ?Confirmed albuterol sulfate 90 mcg/actuation 2 puff inhalation Q 6H PRN 05/05/24 08/15/25 aerosol inhaler shortness of breath or wheez ing #8.5 grams dextroamphetamine-amphetamine ER 25 mg PO DAILY 08/15/25 25 mg 24hr capsule,extend release (Adderall XR) venlafaxine 75 mg tablet 75 mg PO DAILY 05/05/2403/06 phenazopyridine 200 mg tablet 200 mg PO TID PRN pain 6 doses #6 08/15/25 08/15/25 (Pyridium) tabs fluconazole 150 mg tablet 150 mg PO Q3D 2 doses #2 tab s 08/18/25 08/18/25 cephalexin 500 mg capsule 500 mg PO BID 7 days #14 cap s 08/19/25 08/19/25 Previous Rx's ?Medication ?Instructions ?Recorded albuterol sulfate 90 mcg/actuation 2 puff inhalation Q 6H PRN 05/05/24 aerosol inhaler shortness of breath or wheez ing #8.5 grams phenazopyridine 200 mg tablet 200 mg PO TID PRN pain 6 doses #6 08/15/25 (Pyridium) tabs fluconazole 150 mg tablet 150 mg PO Q3D 2 doses #2 tab s 08/18/25 cephalexin 500 mg capsule 500 mg PO BID 7 days #14 cap s 08/19/25 Allergies Allergy/AdvReac Type Severity Reaction Status Date / Time No Known Allergies Allergy Verified 08/20/25 08:52 General Stated Complaint: Urinary DAVID: 3 Exam Narrative Exam Narrative: Alert and oriented female in no acute distress mild suprapubic tenderness no CVA tenderness on assessment no rebound or guarding specifically no peritonitis no respiratory distress, pelvic exam without acute abnormality, specifically no cervical motion tenderness or adnexal tenderness Course Vital Signs Vital signs: Vital Signs Temperature 35.2 C L 08/20/25 08:46 Pulse 88 08/20/25 08:46 Respiratory Rate 14 08/20/25 08:46 Blood Pressure 113/73 08/20/25 08:46 Pulse Oximetry 98 08/20/25 08:46 Temperature 35.2 C L 08/20/25 08:53 Pulse 82 08/20/25 09:26 Respiratory Rate 16 08/20/25 09:26 Blood Pressure 122/55 L 08/20/25 09:26 Blood Pressure Mean 77 08/20/25 09:26 Blood Pressure Position Sitting 08/20/25 08:53 Pulse Oximetry 100 08/20/25 09:26 Oxygen Delivery Method Room Air 08/20/25 09:26 Oxygen Flow Rate 0 08/20/25 09:26 Pain Level 7 08/20/25 08:53 Comment has not been using otc medications 08/20/25 08:53 Lab/Test Results Lab/Test Results: 08/20/25 13:20 Vaginal Vaginitis Screen - Final Laboratory Tests Range/Units 08/20/25 08/20/25 09:23 10:35 WBC (4.4-10.8) 10^3/uL 4.51 RBC (3.93-5.22) 10^6/uL 4.14 Hgb (11.2-15.7) g/dL 13.0 Hct (36.0-46.0) % 39.3 MCV (80-95) fL 95 MCH (27.0-33.0) pg 31.4 MCHC (32.0-36.0) % 33.1 RDW (11.7-14.6) % 11.6 L Plt Count (130-400) 10^3/uL 304 MPV (8.0-11.0) fL 8.2 Immature Gran % % 0.4 Neutrophils % % 54.9 Lymphocytes % % 33.0 Monocytes % % 7.5 Eosinophils % % 3.3 Basophils % % 0.9 Nucleated RBC % (0.0-0.3) % 0.0 Absolute Neutrophils (1.2-6.7) 10^3/uL 2.47 Absolute Lymphocytes (1.2-3.4) 10^3/uL 1.49 Absolute Monocytes (0.1-0.8) 10^3/uL 0.34 Absolute Eosinophils (0.0-0.7) 10^3/uL 0.15 Absolute Basophils (0.0-0.2) 10^3/uL 0.04 Sodium (136-145) mmol/L 142 Potassium (3.5-5.1) mmol/L 3.8 Chloride (98-107) mmol/L 103 Carbon Dioxide (21.0-32.0) mmol/L 28.2 Anion Gap (3-11) mmol/L 10.8 BUN (7-18) mg/dL 8 Creatinine (0.55-1.02) mg/dL 0.8 Est GFR (CKD-EPI 2020) (mL/min/1.73m2) 100.33 Glucose (74-106) mg/dL 67 L Calcium (8.5-10.1) mg/dL 8.8 Total Bilirubin (0.2-1.0) mg/dL 0.3 AST (15-37) U/L 30 ALT (14-59) U/L 57 Alkaline Phosphatase (46-116) U/L 92 Total Protein (6.4-8.2) g/dL 7.1 Albumin (3.4-5.0) g/dL 3.9 Urine Color (Yellow) Yellow Urine Clarity (Clear) Clear Urine pH (5-8) 5.5 Ur Specific [place] (1.005-1.025) 1.010 Urine Protein (Neg-Trace) mg/dL Negative Urine Ketones (Negative) mg/dL Negative Urine Blood (Negative) Negative Urine Nitrite (Negative) Negative Urine Bilirubin (Negative) Negative Urine Urobilinogen (Up to 0.2) mg/dL 0.2 Ur Leukocyte Esterase (Negative) Negative Urine Glucose (Negative) mg/dL Negative POC- Test(urine) Negative Medical Decision Making Results: Vaginal path swab is pending, urinalysis clear CBC and CMP clear, glucose 67 given juice, renal ultrasound without acute abnormality Assessment and plan: Patient with history of recurrent urinary tract infections, will refer back to urology, patient will continue on Keflex until her urinalysis urine culture has returned. There is no evidence of PID clinically on my assessment today. I see no indication to treat her for an STD as she has had a recent negative STD swab with this partner. Her labs are certainly reassuring as is her renal ultrasound. She is encouraged to take Motrin 600 mg every 8 hours for the next 3 days to see if it improves her symptoms and to return earli er should she have new or worsening complaints. She is pending STD swabs and vaginal path swabs [facility] All Active Problems (Updated 08/20/25 @ 12:54 by CARMENZA Del Angel) Dysuria (Acute) Social History Smoking/Tobacco Use Status: Never Smoking risk assessment performed?: Yes Alcohol Intake: current Alcohol Intake frequency: a few times a month Alcohol type: beer, wine and hard liquor Drug use: Never Substance use type: does not use Housing: house Do you feel safe at home: Yes Do you feel safe in your relationship?: Yes
[2025-08-24 13:04] LABS: Chlamydia Result Invalid (Negative); GC Result Invalid (Negative)
--- NOTE | 2025-08-24 16:26 | W.ED.FU ---
Date of service: 08/24/25 Time of Service: 16:26 Follow Up Plan: This patient had asynchronous results return during my shift. I called the patient at her home number. She had been treated for urinary tract infection. She reported she felt improved. Her urinalysis was growing less than 10,000 colony-forming units of gram-positive rai. Her vaginal pathogen screen was negative for Geeta, Gardnerella, trichomonas. There was not an adequate sample to assess for chlamydia or GC. She denied any abnormal vaginal discharge and fevers. She had not had any new partners. It seems that there is low suspicion for sexually transmitted infection. Patient I discussed that she should return to the ED if she developed any fevers abdominal pain chills nausea or vomiting. She understood her return indications. Will continue to observe as an outpatient.
== END 2025-08-20 13:34 | disposition home or self-care (01) ==
PROVIDERS: Emergency Provider Physician Assistant; PCP Nurse Practitioner Family
DX: R30.0 Dysuria (principal)
CPT/HCPCS: 99284 ×2; 81025; 36415; 96374; 76770; 80053; 87491; 87591; 96361; 81003; 85025; 87480; 87510; 87660; J1885

== ENCOUNTER 2025-08-28 19:21 | Outpatient (REF) | payer MEDICAID, SELFPAY ==
[2025-08-28 19:42] LABS: C & S Indicated? No; RBC 0-2 HPF (0-2); WBC Negative HPF (0-5)
== END 2025-08-28 19:22 | disposition home or self-care (01) ==
LOC: NCHCN 19:21
PROVIDERS: PCP Nurse Practitioner Family; Visit Provider Nurse Practitioner Family
DX: N39.0 Urinary tract infection, site not specified (principal)
CPT/HCPCS: 81015

== ENCOUNTER → 2025-10-26 14:32 | Outpatient (CLI) | payer MEDICAID, SELFPAY ==
--- NOTE | 2025-10-26 10:53 | DI.RAD_ITS ---
Exam(s) XR CHEST 2V PA LATERAL EXAM: XR CHEST 2V PA LATERAL CLINICAL HISTORY: cough, ? pneumonia TECHNIQUE: 2D digital imaging was performed of the chest. Two images were obtained. PA and lateral views were obtained. COMPARISON: No exams were available for comparison FINDINGS: MEDIASTINUM: Normal. HEART: Normal. PULMONARY VASCULATURE: Normal. LUNGS: Clear. PLEURAL SPACE: No pleural effusion or pneumothorax. BONE:Within normal limits for the patient's age. OTHER FINDINGS:Normal. IMPRESSION: No acute pulmonary findings. DATA REPOSITORY: RADIATION DOSE DELIVERED:
== END ==
LOC: DI 11-18 14:32
PROVIDERS: PCP Nurse Practitioner Family; Visit Provider Physician Assistant
DX: R05.9 Cough, unspecified (principal)
CPT/HCPCS: 71046